=== PATIENT | male | born 1980 | race African-American/Black ===

== ENCOUNTER 2019-10-13 11:41 | Outpatient (CLI) | payer SELFPAY ==
[2019-10-13 12:07] VITALS: BP 154/105
[2019-10-13] MEDS ORDERED: NORMAL SALINE 1000 ML 1,000 ML IV PRN (12:16)
== END 2019-10-13 13:27 | disposition home or self-care (01) ==
LOC: II 11:41 → 5TH 12:07 → II 13:27
PROVIDERS: ATTEND Internal Medicine
DX: C25.2 Malignant neoplasm of tail of pancreas (principal)
CPT/HCPCS: 96360; J1642; 96361

== ENCOUNTER 2019-11-01 07:55 | Outpatient (CLI) | payer BC ==
[~2019-11-01 07:55] MED LIST: ATROPINE SULFATE INJ 0.4 MG/1 ML VIAL IV PRN; CONTAINER EMPTY IV PRN; DEXAMETHASONE 10 MG in NS 50 ML IV PRN; DEXTROSE 5% IV PRN; DEXTROSE 5%-WATER 250 ML IV PRN; FAMOTIDINE 20 MG in NS 50 ML IV PRN; FLUOROURACIL IV PRN; LEUCOVORIN CALCIUM IV PRN; OXALIPLATIN IV PRN; PALONOSETRON 0.25 MG/5 ML VIAL IV PRN; WATER IV PRN
[2019-11-01 08:19] VITALS: BP 152/102
[2019-11-01] MEDS: WATER IV PRN ×2 (12:25→12:35)
[2019-11-01] MEDS: DEXTROSE 5% IV PRN ×2 (12:25→12:35)
[2019-11-01] MEDS: IRINOTECAN HCL IV PRN ×2 (12:25→12:35)
== END 2019-11-01 14:30 | disposition home or self-care (01) ==
LOC: II 07:55 → 5TH 07:57 → II 14:30
PROVIDERS: ATTEND Internal Medicine
DX: Z51.11 Encounter for antineoplastic chemotherapy (principal); C25.2 Malignant neoplasm of tail of pancreas
CPT/HCPCS: 96413; 96415; 96416; 96367; 96375; 96417; J0461; J3490; J9190; J9206; J7060; S0028; J1100; J9263; J2469; 96368

== ENCOUNTER 2019-11-03 12:03 | Outpatient (CLI) | payer BC ==
[2019-11-03] MEDS ORDERED: NORMAL SALINE 1000 ML 1,000 ML IV PRN (12:13)
[2019-11-03 12:20] VITALS: BP 146/95
[2019-11-03] MEDS ORDERED: PROMETHAZINE HCL INJ 25 MG/1 ML VIAL ONE (12:55)
== END 2019-11-03 13:30 | disposition home or self-care (01) ==
LOC: II 12:03 → 5TH 12:19 → II 13:30
PROVIDERS: ATTEND Internal Medicine
DX: C25.2 Malignant neoplasm of tail of pancreas (principal); R11.0 Nausea
CPT/HCPCS: 96374; 96361; J2550; J1642

== ENCOUNTER 2019-11-15 07:49 | Outpatient (CLI) | payer BC ==
[2019-11-15] MEDS ORDERED: DEXTROSE 5% IV PRN ×3 (08:00)
[2019-11-15] MEDS ORDERED: FAMOTIDINE 20 MG in NS 50 ML IV PRN (08:00)
[2019-11-15] MEDS ORDERED: WATER IV PRN ×3 (08:00)
[2019-11-15] MEDS ORDERED: LEUCOVORIN CALCIUM IV PRN (08:00)
[2019-11-15] MEDS ORDERED: ATROPINE SULFATE INJ 0.4 MG/1 ML VIAL IV PRN (08:00)
[2019-11-15] MEDS ORDERED: IRINOTECAN HCL IV PRN (08:00)
[2019-11-15] MEDS ORDERED: DEXAMETHASONE 10 MG in NS 50 ML IV PRN (08:00)
[2019-11-15] MEDS ORDERED: CONTAINER EMPTY IV PRN (08:00)
[2019-11-15] MEDS ORDERED: FLUOROURACIL IV PRN (08:00)
[2019-11-15] MEDS ORDERED: PALONOSETRON 0.25 MG/5 ML VIAL IV PRN (08:00)
[2019-11-15] MEDS ORDERED: DEXTROSE 5%-WATER 250 ML IV PRN (08:00)
[2019-11-15] MEDS ORDERED: OXALIPLATIN IV PRN (08:00)
[2019-11-15 08:09] VITALS: BP 160/107
[2019-11-15] MEDS ORDERED: PROMETHAZINE HCL INJ 25 MG/1 ML VIAL ONE ×2 (13:18→13:53)
== END 2019-11-15 14:38 | disposition home or self-care (01) ==
LOC: II 07:49 → 5TH 07:51 → II 14:38
PROVIDERS: ATTEND Internal Medicine
DX: Z51.11 Encounter for antineoplastic chemotherapy (principal); C25.2 Malignant neoplasm of tail of pancreas
CPT/HCPCS: 96413; 96415; 96416; 96365; 96367; 96368; 96375; 96417; J0461; J3490; J9190; J9206; J2550; J7060; S0028; J1100; J9263; J2469

== ENCOUNTER 2019-11-17 13:46 | Outpatient (CLI) | payer BC ==
[2019-11-17] MEDS ORDERED: NORMAL SALINE 1000 ML 1,000 ML IV PRN (14:01)
[2019-11-17 14:07] VITALS: BP 144/95
== END 2019-11-17 15:35 | disposition home or self-care (01) ==
LOC: II 13:46 → 5TH 13:47 → II 15:35
PROVIDERS: ATTEND Internal Medicine
DX: C25.2 Malignant neoplasm of tail of pancreas (principal)
CPT/HCPCS: 96360

== ENCOUNTER → 2019-11-23 | Outpatient (CLI) | payer BC ==
--- NOTE | 2019-11-23 10:38 | RADIOLOGY REPORT (SQ) ---
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 TECHNIQUE: CT scan of the chest performed using helical scanning technique with dynamic intravenous contrast injection. Images reviewed with lung, soft tissue and bone windows. Reconstructed coronal a nd sagittal MPR images reviewed. All images stored on PACS. All CT scanners at this facility use dose modulation, iterative reconstruction, and/or weight based d osing when appropriate to reduce radiation dose to as low as reasonably achievable (ALARA). [facility]: Dose Right [facility]: CareDose [facility]: Dose Right [facility]: Teradose 4D [facility]: Smart [employer] RADIATION DOSE: CT Rad equipment meets quality standard of care and radiation dose reduction techniq ues were employed. CTDIvol: 6.9 - 7.3 mGy. DLP: 1075 mGy-cm. . LIMITATIONS: None. FINDINGS: AXILLAE: No adenopathy. CHEST WALL: No masses. No subcutaneous air. LUNGS: Complete collapse of the left upper and lower lobes. PLEURA: Large left pleural effusion occupying the majority of the left hemithorax. Small right effus ion. THYROID: No masses or significant asymmetry. HILAR AND MEDIASTINAL STRUCTURES: Mediastinum shifted to the right. No pathologic adenopathy is appr eciated. AORTA AND GREAT VESSELS: No aneurysm. No dissection. PULMONARY ARTERIES: No identified pulmonary emboli. Study not optimized for the pulmonary arteries. HEART: No pericardial effusion. HARDWARE AND LIFELINES: Mmrbqo-D-Qyvd overlies the left chest wall. Catheter tip overlies the SVC. BONES: No significant finding. OTHER: No other significant finding. IMPRESSION: Large left-sided pleural effusion which occupies the majority of the left hemithorax. C omplete collapse of left upper and lower lobes. COMPARISON: None. RADIATION DOSE: CT Rad equipment meets quality standard of care and radiation dose reduction techniq ues were employed. CTDIvol: 6.9 - 7.3 mGy. DLP: 1075 mGy-cm. mGy. TECHNIQUE: CT scan of the abdomen and pelvis performed with intravenous and oral contrast using jeremie liberty scanning technique with dynamic intravenous contrast injection. Images reviewed with lung, soft tissue and bone windows. Reconstructed coronal and sagittal MPR images reviewed. Delayed images for evaluation of the urinary system also acquired and evaluated. All images stored on PACS. All CT scanners at this facility use dose modulation, iterative reconstruction, and/or weight based d osing when appropriate to reduce radiation dose to as low as reasonably achievable (ALARA). [facility]: Dose Right [facility]: SureCare [facility]: Dose Right [facility]: Teradose 4D [facility]: [employer] FINDINGS: LIVER: There is heterogeneous attenuation within the liver with focal lesions throughout t he right lobe. The largest lesion measures approximately 2.2 cm in diameter. SPLEEN: No focal splenic lesions. The large left effusion axillae displaces the spleen medially and anteriorly. PANCREAS: There is a 7.4 x 8.4 x 7.9 cm mass involving the body and tail the pancreas. This extends to the splenic hilum there is invasion of the left kidney. The mass abuts the left adrenal gland. GALLBLADDER: No identified stones by CT criteria. No inflammatory changes to suggest cholecystitis. ADRENAL GLANDS: No significant masses or asymmetry. RIGHT KIDNEY AND URETER: No solid masses. No significant calcifications. No hydronephrosis or hyd roureter. LEFT KIDNEY AND URETER: As described above pancreatic mass invades the left kidney. No significant calcifications. No hydronephrosis or hydroureter. AORTA AND VESSELS: No aneurysm. No dissection. Renal arteries, SMA, celiac without stenosis. RETROPERITONEUM: Some fullness in the retroperitoneum suspect early metastatic disease. LARGE AND SMALL BOWEL: No dilatation. No masses. No wall thickening. APPENDIX: Normal. ABDOMINAL WALL: No hernia or masses. PERITONEAL CAVITY: There is a small amount of free fluid in the right and left lateral gutters. Ther e is a small amount of free fluid in the pelvis. PELVIS: As above. BONES: No significant or acute findings. OTHER: No other significant finding. IMPRESSION: Large pancreatic mass with direct involvement of the left kidney. Small amount of free fluid. Probable early retroperitoneal adenopathy consistent with metastatic disease. TECHNICAL DOCUMENTATION: JOB ID: [id number] Quality ID # 436: Final reports with documentation of one or more dose reduction techniques (e.g., Au tomated exposure control, adjustment of the mA and/or kV according to patient size, use of iterative reconstruction technique) 2010 [employer]- All Rights Reserved Reading location - IP/workstation name: [email or web address]
--- NOTE | 2019-11-23 10:38 | RADIOLOGY REPORT (SQ) ---
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 TECHNIQUE: CT scan of the chest performed using helical scanning technique with dynamic intravenous contrast injection. Images reviewed with lung, soft tissue and bone windows. Reconstructed coronal a nd sagittal MPR images reviewed. All images stored on PACS. All CT scanners at this facility use dose modulation, iterative reconstruction, and/or weight based d osing when appropriate to reduce radiation dose to as low as reasonably achievable (ALARA). [facility]: Dose Right [facility]: CareDose [facility]: Dose Right [facility]: Teradose 4D [facility]: Smart [employer] RADIATION DOSE: CT Rad equipment meets quality standard of care and radiation dose reduction techniq ues were employed. CTDIvol: 6.9 - 7.3 mGy. DLP: 1075 mGy-cm. . LIMITATIONS: None. FINDINGS: AXILLAE: No adenopathy. CHEST WALL: No masses. No subcutaneous air. LUNGS: Complete collapse of the left upper and lower lobes. PLEURA: Large left pleural effusion occupying the majority of the left hemithorax. Small right effus ion. THYROID: No masses or significant asymmetry. HILAR AND MEDIASTINAL STRUCTURES: Mediastinum shifted to the right. No pathologic adenopathy is appr eciated. AORTA AND GREAT VESSELS: No aneurysm. No dissection. PULMONARY ARTERIES: No identified pulmonary emboli. Study not optimized for the pulmonary arteries. HEART: No pericardial effusion. HARDWARE AND LIFELINES: Gdydyf-M-Serr overlies the left chest wall. Catheter tip overlies the SVC. BONES: No significant finding. OTHER: No other significant finding. IMPRESSION: Large left-sided pleural effusion which occupies the majority of the left hemithorax. C omplete collapse of left upper and lower lobes. COMPARISON: None. RADIATION DOSE: CT Rad equipment meets quality standard of care and radiation dose reduction techniq ues were employed. CTDIvol: 6.9 - 7.3 mGy. DLP: 1075 mGy-cm. mGy. TECHNIQUE: CT scan of the abdomen and pelvis performed with intravenous and oral contrast using jeremie liberty scanning technique with dynamic intravenous contrast injection. Images reviewed with lung, soft tissue and bone windows. Reconstructed coronal and sagittal MPR images reviewed. Delayed images for evaluation of the urinary system also acquired and evaluated. All images stored on PACS. All CT scanners at this facility use dose modulation, iterative reconstruction, and/or weight based d osing when appropriate to reduce radiation dose to as low as reasonably achievable (ALARA). [facility]: Dose Right [facility]: SureCare [facility]: Dose Right [facility]: Teradose 4D [facility]: [employer] FINDINGS: LIVER: There is heterogeneous attenuation within the liver with focal lesions throughout t he right lobe. The largest lesion measures approximately 2.2 cm in diameter. SPLEEN: No focal splenic lesions. The large left effusion axillae displaces the spleen medially and anteriorly. PANCREAS: There is a 7.4 x 8.4 x 7.9 cm mass involving the body and tail the pancreas. This extends to the splenic hilum there is invasion of the left kidney. The mass abuts the left adrenal gland. GALLBLADDER: No identified stones by CT criteria. No inflammatory changes to suggest cholecystitis. ADRENAL GLANDS: No significant masses or asymmetry. RIGHT KIDNEY AND URETER: No solid masses. No significant calcifications. No hydronephrosis or hyd roureter. LEFT KIDNEY AND URETER: As described above pancreatic mass invades the left kidney. No significant calcifications. No hydronephrosis or hydroureter. AORTA AND VESSELS: No aneurysm. No dissection. Renal arteries, SMA, celiac without stenosis. RETROPERITONEUM: Some fullness in the retroperitoneum suspect early metastatic disease. LARGE AND SMALL BOWEL: No dilatation. No masses. No wall thickening. APPENDIX: Normal. ABDOMINAL WALL: No hernia or masses. PERITONEAL CAVITY: There is a small amount of free fluid in the right and left lateral gutters. Ther e is a small amount of free fluid in the pelvis. PELVIS: As above. BONES: No significant or acute findings. OTHER: No other significant finding. IMPRESSION: Large pancreatic mass with direct involvement of the left kidney. Small amount of free fluid. Probable early retroperitoneal adenopathy consistent with metastatic disease. TECHNICAL DOCUMENTATION: JOB ID: [id number] Quality ID # 436: Final reports with documentation of one or more dose reduction techniques (e.g., Au tomated exposure control, adjustment of the mA and/or kV according to patient size, use of iterative reconstruction technique) 2010 [employer]- All Rights Reserved Reading location - IP/workstation name: [email or web address]
== END ==
LOC: RAD 08:51
PROVIDERS: ATTEND Internal Medicine
DX: C25.2 Malignant neoplasm of tail of pancreas (principal); J90 Pleural effusion, not elsewhere classified; J98.19 Other pulmonary collapse
CPT/HCPCS: 71260; 74177

== ENCOUNTER 2019-11-25 12:06 | Inpatient (IN) | payer BC ==
--- NOTE | 2019-11-25 12:20 | ER Document Report ---
ED Medical Screen (RME) - General Chief Complaint: Shortness Of Breath Stated Complaint: SHORTNESS OF BREATH Time Seen by Provider: 11/25/19 12:15 Primary Care Provider: PABLO WELCH MD [Primary Care Provider] - Follow up as needed Information source: Patient Notes: Patient presents complaining of shortness of breath. Patient was sent here from his oncologist office. Patient states that Dr. Vince pratt told him that he had fluid on his left lung. Patient denies any chest pain or fever. Patient is currently being treated for pancreatic cancer and also has a history of hypertension and diabetes. I have greeted and performed a rapid initial assessment of this patient. A comprehensive ED assessment and evaluation of the patient, analysis of test results and completion of the medical decision making process will be conducted by additional ED providers. TRAVEL OUTSIDE OF THE [place] IN LAST 30 DAYS: No - Related Data Allergies/Adverse Reactions: azithromycin Allergy (Unknown, Verified 11/25/19 12:15) Physical Exam - Respiratory Respiratory status: No respiratory distress Breath sounds: Other - Diminished breath sounds on the left Doctor's Discharge - Discharge Referrals: PABLO WELCH MD [Primary Care Provider] - Follow up as needed
--- NOTE | 2019-11-25 12:59 | RADIOLOGY REPORT (SQ) ---
EXAM DESCRIPTION: CHEST 2 VIEWS COMPLETED DATE/TIME: 11/25/2019 12:48 pm REASON FOR STUDY: sob COMPARISON: None. EXAM PARAMETERS: NUMBER OF VIEWS: two views TECHNIQUE: PA and lateral views of the chest were obtained. RADIATION DOSE: NA LIMITATIONS: none FINDINGS: LUNGS AND PLEURA: Large left pleural effusion associated with left to right mediastinal sh ift. There is no pneumothorax. MEDIASTINUM AND HILAR STRUCTURES: As above. HEART AND VASCULAR STRUCTURES: The cardiac silhouette and pulmonary vasculature are within normal dawn its. BONES: No acute findings. HARDWARE: The tip of the left subclavian vein approach single-lumen port projects within the SVC. OTHER: No other finding. IMPRESSION: Large left pleural effusion. TECHNICAL DOCUMENTATION: JOB ID: [id number] [employer]- All Rights Reserved Reading location - IP/workstation name: [email or web address]
[2019-11-25 14:06] LABS: ABSOLUTE MONOCYTES (AUTO) 0.6 10^3/uL (0.1-1.4); ABSOLUTE NEUT (AUTO) 3.9 10^3/uL (1.7-8.2); BASOPHILS % (AUTO) 0.4 % (0-2); EOSINOPHILS % (AUTO) 0.4 % (0-6); HEMATOCRIT 36.6 % (37.9-51.0); HEMOGLOBIN 12.1 g/dL (13.5-17.0); LYMPHOCYTES % (AUTO) 18.3 % (13-45); MEAN CORPUSCULAR HEMOGLOBIN 25.9 pg (27.0-33.4); MEAN CORPUSCULAR HGB CONC 33.1 g/dL (32.0-36.0); MEAN CORPUSCULAR VOLUME 78 fl (80-97); MONOCYTES % (AUTO) 11.2 % (3-13); PLATELET COUNT 125 10^3/uL (150-450); RED BLOOD COUNT 4.67 10^6/uL (4.35-5.55); RED CELL DISTRIBUTION WIDTH 18.5 % (11.5-14.0); SEGMENTED NEUTROPHILS % (AUTO) 69.7 % (42-78); TOTAL CELLS COUNTED % (AUTO) 100 %; WHITE BLOOD COUNT 5.7 10^3/uL (4.0-10.5)
[2019-11-25 14:26] LABS: ALBUMIN 3.3 g/dL (3.5-5.0); ALKALINE PHOSPHATASE 119 U/L (38-126); ANION GAP 8 (5-19); ASPARTATE AMINO TRANSFERASE 27 U/L (17-59); BILIRUBIN,TOTAL 0.5 mg/dL (0.2-1.3); BLOOD UREA NITROGEN 6 mg/dL (7-20); CALCIUM 8.8 mg/dL (8.4-10.2); CARBON DIOXIDE 35 mmol/L (22-30); CHLORIDE 97 mmol/L (98-107); GLUCOSE 218 mg/dL (75-110); POTASSIUM 3.1 mmol/L (3.6-5.0)
[2019-11-25 14:37] LABS: NT PRO BNP 105 pg/mL (<125)
[2019-11-25 14:43] LABS: TROPONIN I < 0.012 ng/mL
--- NOTE | 2019-11-25 15:19 | ER Document Report ---
Entered by GURWINDER ARRIAZA SCRIBE 11/25/19 1455 Acting as scribe for:TRISTEN TRAN MD ED General - General Chief Complaint: Shortness Of Breath Stated Complaint: SHORTNESS OF BREATH Time Seen by Provider: 11/25/19 12:15 Information source: Patient Notes: 39 year old male with stage IV pancreatic cancer presents to the ED with shortness of breath. Patient reports that he does not recall initial start of SOB. Patient has a history of hypertension and Type 1 diabetes. Patient present ly uses a sliding scale insulin, states he has not taken insulin in 2 to 3 weeks because his blood sugars have not been elevated. Patient had an outpatient chest x-ray today showing a large left pleural effusion with mediastinal shift. He is being treated with chemotherapy by Dr. Florez. TRAVEL OUTSIDE OF THE [place] IN LAST 30 DAYS: No - Related Data Allergies/Adverse Reactions: azithromycin Allergy (Unknown, Verified 11/25/19 12:15) Past Medical History - General Information source: Patient - Social History Smoking Status: Never Smoker Cigarette use (# per day): No Chew tobacco use (# tins/day): No Frequency of alcohol use: None Drug Abuse: None Family History: Reviewed & Not Pertinent Patient has suicidal ideation: No Patient has homicidal ideation: No Malignancy Medical History: Reports Hx Pancreatic Cancer - Stage IV Surgical Hx: Negative Review of Systems - Review of Systems Constitutional: No symptoms reported EENT: No symptoms reported Cardiovascular: No symptoms reported Respiratory: See HPI, Short of breath Gastrointestinal: No symptoms reported Genitourinary: No symptoms reported Male Genitourinary: No symptoms reported Musculoskeletal: No symptoms reported Skin: No symptoms reported Hematologic/Lymphatic: No symptoms reported Neurological/Psychological: No symptoms reported -: Yes All other systems reviewed and negative Physical Exam - Vital signs Vitals: Temp Pulse Resp BP Pulse Ox 98.0 F 117 H 18 140/103 H 100 11/25/19 12:12 11/25/19 12:12 11/25/19 12:12 11/25/19 12:12 11/25/19 12:12 - Notes Notes: General: Alert, appears cachectic. HEENT: Normocephalic. Atraumatic. PERRL. Extraocular movements intact. Oropharynx clear. Neck: Supple. Non-tender. Respiratory: Left lung is dull on percussion. Right lung clear. Cardiovascular: Regular rate and rhythm. Abdominal: Normal Inspection. Non-tender. No distension. Normal Bowel Sounds. Back: No gross abnormalities. Extremities: Moves all four extremities. Upper extremities: Normal inspection. Normal ROM. Lower extremities: Normal inspection. No edema. Normal ROM. Neurological: Normal cognition. AAOx4. Normal speech. Psychological: Normal affect. Normal Mood. Skin: Warm. Dry. Normal color. Course - Re-evaluation Re-evalutation: 11/25/19 16:40 Dr. Fallon placed chest tube and got out 4 L of fluid. - Vital Signs Vital signs: Temp Pulse Resp BP Pulse Ox 98.1 F 121 H 16 116/81 92 11/25/19 20:16 11/25/19 20:16 11/25/19 20:16 11/25/19 20:16 11/25/19 20:16 - Laboratory Result Diagrams: 11/25/19 13:40 11/25/19 13:40 Laboratory results interpreted by me: 11/25/19 11/25/19 13:40 13:40 Hgb 12.1 L Hct 36.6 L MCV 78 L MCH 25.9 L RDW 18.5 H Plt Count 125 L Potassium 3.1 L Chloride 97 L Carbon Dioxide 35 H BUN 6 L Glucose 218 H Albumin 3.3 L - Diagnostic Test Radiology reviewed: Image reviewed, Reports reviewed - Large left pleural effusion with mediastinal shift - EKG Interpretation by Ut EKG shows normal: Sinus rhythm, [place], Intervals, QRS Complexes. abnormal: ST-T Waves - Nonspecific diffuse T abnormalities Rate: Tachycardia - 108 When compared to previous EKG there are: Previous EKG unavailable - Consults Dr. Fallon Time consulted: 14:55 Consulted provider: will come to ER ELLEN Rouse Time consulted: 16:35 Consulted provider: will come to ER Discharge - Discharge Clinical Impression: History of colon cancer, stage IV, Pancreatic cancer metastasized to liver, Pleural effusion Condition: Stable Disposition: ADMITTED INPATIENT Admitting Provider: Maddie (Hospitalist) Unit Admitted: Medical Floor Scribe Attestation: 11/25/19 16:03 I personally performed the services described in the documentation, reviewed and edited the documentation which was dictated to the scribe in my presence, and it accurately records my words and actions. I personally performed the services described in the documentation, reviewed and edited the documentation which was dictated to the scribe in my presence, and it accurately records my words and actions.
[2019-11-25] MEDS ORDERED: MIDAZOLAM 2 MG/2 ML INJ IV ONE ×2 (15:50→16:06)
[2019-11-25] MEDS ORDERED: FENTANYL CITRATE INJ/PF 100 MCG/2 ML AMPUL IV ONE (15:51)
[2019-11-25] MEDS ORDERED: LIDOCAINE 1% INJ-PF (10 MG/ML) 30 ML SDV INJ ONE (16:00)
[2019-11-25] MEDS ORDERED: LIDOCAINE 1% INJ-PF (10 MG/ML) 30 ML SDV ONE (16:02)
--- NOTE | 2019-11-25 16:44 | Operative Report ---
Operative Report DATE OF SURGERY: 11/25/19 PREOPERATIVE DIAGNOSIS: 1. Massive left pleural effusion with mediastinal shif t. 2. Metastatic pancreatic carcinoma POSTOPERATIVE DIAGNOSIS: Same OPERATION: 1. Placement of 32 Monegasque left thoracostomy tube and drainage of a l eft pleural effusion. 2. Interpretation of portable upright chest x-ray SURGEON: GERRY LAL ANESTHESIA: Local TISSUE REMOVED OR ALTERED: 4500 cc of fluid left chest COMPLICATIONS: None ESTIMATED BLOOD LOSS: Scant INTRAOPERATIVE FINDINGS: See below PROCEDURE: The patient was moved from examination room in the emergency department to the trauma bay where is placed in semirecumbent position. Left chest exposed, left arm abducted. The left chest wall was prepped and draped in sterile fashion. Surgical plan surgical timeout conducted. Preoperative chest x-ray revealed massive left pleural effusion with mediastinal shift to the right. The skin over ICS 8- 9 was anesthetized with 1% plain lidocaine. Deeper tissue was also anesthetized with a 25-gauge needle. A small transverse incision was made with a #15 blade, Mary clamp used to spread the subcutaneous tissue. A puncture was then made into the left pleural space and the intercostal muscle spread. A Mary clamp was used for this purpose. I then inserted a 32 Monegasque chest tube into a posterior lateral position with the sentinel hole approximately 8 to 10 cm from the skin edge. The chest tube was secured to the skin in a pursestring fashion with 0 silk suture. The patient drained approximately 4500 cc of pleural fluid, most likely malignant effusion. The drainage was performed in segments so that patient could catch his breath and overcome the coughing sensation. Chest tube was secured to the skin with tape and 4 x 4's. Portable upright chest x-ray showed chest tube to be in good position in the lateral pleural space with near complete evacuation of the left pleural fluid, and return to the mediastinum from the right to the more left of center position. Orders written. Patient tolerated the procedure well, remained hemodynamically stable and without complications. Plan: We will leave chest tube to waterseal, change dressing daily. We will discuss management of the left pleural space pending results of cytologic kvng sis.
--- NOTE | 2019-11-25 17:06 | RADIOLOGY REPORT (SQ) ---
EXAM DESCRIPTION: CHEST SINGLE VIEW COMPLETED DATE/TIME: 11/25/2019 4:38 pm REASON FOR STUDY: CHEST TUBE COMPARISON: AP chest 11/25/2019, [address] chest 11/23/2019 EXAM PARAMETERS: NUMBER OF VIEWS: One view. TECHNIQUE: Single frontal radiographic view of the chest acquired. RADIATION DOSE: NA LIMITATIONS: None. FINDINGS: LUNGS AND PLEURA: Large bore left chest tube in place. No left pneumothorax or residual p leural effusion. No left chest wall air. MEDIASTINUM AND HILAR STRUCTURES: No masses. Contour normal. HEART AND VASCULAR STRUCTURES: Heart normal in size. Normal vasculature. BONES: No acute findings. HARDWARE: Left-sided permanent central line tip superior vena cava. Left large bore chest tube in pl jonathan in OTHER: No other significant finding. IMPRESSION: Post left large bore chest tube placement. No pneumothorax. No residual pleural effusi on or significant airspace disease. TECHNICAL DOCUMENTATION: JOB ID: [id number] [employer]- All Rights Reserved Reading location - IP/workstation name: [email or web address]
--- NOTE | 2019-11-25 17:48 | EKG REPORT ---
SEVERITY:- ABNORMAL ECG - SINUS TACHYCARDIA NONSPECIFIC T ABNORMALITIES, DIFFUSE LEADS : Confirmed by: Marcellus López MD 25-Nov-2019 17:47:46
[2019-11-25] MEDS ORDERED: DEXTROSE 50%-WATER 25 GM/50 ML DISP.SYRIN IV PRN ×2 (17:53)
[2019-11-25] MEDS ORDERED: GLUCAGON,HUMAN RECOMB 1 MG INJ IM PRN (17:53)
[2019-11-25] MEDS ORDERED: DEXTROSE 40% GEL 15 GM TUBE PO PRN ×2 (17:53)
[2019-11-25] MEDS ORDERED: HYDRALAZINE HCL INJ/PF 20 MG/1 ML SDV IV PRN (17:53)
[2019-11-25] MEDS ORDERED: ONDANSETRON 4 MG TAB.RAPDIS PO PRN (18:02)
[2019-11-25] MEDS ORDERED: ONDANSETRON HCL INJ/PF 4 MG/2 ML SDV IV PRN (18:02)
--- NOTE | 2019-11-25 18:14 | RADIOLOGY REPORT (SQ) ---
EXAM DESCRIPTION: CHEST SINGLE VIEW COMPLETED DATE/TIME: 11/25/2019 6:01 pm REASON FOR STUDY: decreased oxygen sat COMPARISON: None. EXAM PARAMETERS: NUMBER OF VIEWS: One view. TECHNIQUE: Single frontal radiographic view of the chest acquired. RADIATION DOSE: NA LIMITATIONS: None. FINDINGS: LUNGS AND PLEURA: There is marked opacification in the left lung compared to the earlier s tudy. MEDIASTINUM AND HILAR STRUCTURES: No masses. Contour normal. HEART AND VASCULAR STRUCTURES: Heart normal in size. Normal vasculature. BONES: No acute findings. HARDWARE: Left thoracotomy tube. Injection port on the left. OTHER: No other significant finding. IMPRESSION: There is marked opacification in the left lung. The appearance is suggestive of edema v ersus atelectasis. The right lung remains clear, however. TECHNICAL DOCUMENTATION: JOB ID: [id number] [employer]- All Rights Reserved Reading location - IP/workstation name: [email or web address]
[2019-11-25 19:22] LABS: INTERNATIONAL RATION (INR) 1.13; PROTHROMBIN TIME 14.6 SEC (11.4-15.4)
--- NOTE | 2019-11-25 20:24 | PDOC CONSULTATION ---
Consultation Consult Date: 11/25/19 Provider Consulted: SHAHNAZ INGRAM Consult reason:: Hematology/Oncology consultation was requested for patient with metastatic pancreatic cancer on active treatment with new pleural effusion. History of Present Illness Admission Date/PCP: 11/25/19 16:51 PABLO FLOREZ MD History of Present Illness: LEEANN DONALD is a 39 year old male who was diagnosed with stage IV, metastatic pancreatic cancer in Aug 2019. He was started on FOLFIRINOX 08/24/2019. Most r ecent dose was Nov 15. However, repeat CT scans showed progression with large left pleural effusion. He underwent thoracentesis earlier today by Dr. Fallon and now has chest tube placed. >4000 L fluid was drained. Currently, he states that he is feeling a bit better. Family is at bedside. He denies any significant dyspnea or pain prior to thoracentesis today. Past Medical History Endocrine Medical History: Reports: Diabetes Mellitus Type 2 Malignancy Medical History: Reports: Pancreatic Cancer - Stage IV Past Surgical History Past Surgical History: Reports: Other - umbilical area I/D. Biopsy pancreatic mass Social History Smoking Status: Never Smoker Electronic Cigarette use?: No Family History Family History: Other - 3 Aunts with breast cancer Parental Family History Reviewed: Yes Children Family History Reviewed: No Sibling(s) Family History Reviewed.: Yes Medication/Allergy Allergies/Adverse Reactions: azithromycin Allergy (Unknown, Verified 11/25/19 12:15) Review of Systems Constitutional: ABSENT: fever(s), headache(s) Eyes: ABSENT: visual disturbances Ears: ABSENT: hearing changes Nose, Mouth, and Throat: ABSENT: sore throat Cardiovascular: PRESENT: dyspnea on exertion Gastrointestinal: ABSENT: nausea Genitourinary: ABSENT: dysuria Integumentary: ABSENT: rash Hematologic/Lymphatic: ABSENT: easy bleeding Physical Exam Vital Signs: Temp Pulse Resp BP Pulse Ox 98.0 F 117 H 26 H 116/78 90 L 11/25/19 12:12 11/25/19 12:12 11/25/19 19:15 11/25/19 19:15 11/25/19 19:15 Intake & Output 11/24/19 11/25/19 11/26/19 06:59 06:59 06:59 Weight 80 kg General appearance: PRESENT: no acute distress, well-developed, well-nourished Head exam: PRESENT: normocephalic Eye exam: PRESENT: EOMI Mouth exam: PRESENT: moist, tongue midline Respiratory exam: PRESENT: decreased breath sounds - entire left lung Cardiovascular exam: PRESENT: RRR GI/Abdominal exam: PRESENT: soft. ABSENT: tenderness Extremities exam: ABSENT: pedal edema Neurological exam: PRESENT: alert, awake Psychiatric exam: PRESENT: appropriate affect Skin exam: PRESENT: normal color Results Laboratory Results: 11/25/19 13:40 11/25/19 13:40 11/25/19 11/25/19 13:40 13:40 WBC 5.7 RBC 4.67 Hgb 12.1 L Hct 36.6 L MCV 78 L MCH 25.9 L MCHC 33.1 RDW 18.5 H Plt Count 125 L Seg Neutrophils % 69.7 Sodium 139.5 Potassium 3.1 L Chloride 97 L Carbon Dioxide 35 H Anion Gap 8 BUN 6 L Creatinine 0.55 Est GFR ( Amer) > 60 Glucose 218 H Calcium 8.8 Total Bilirubin 0.5 AST 27 Alkaline Phosphatase 119 Total Protein 7.0 Albumin 3.3 L 11/25/19 13:40 Troponin I < 0.012 NT-Pro-B Natriuret Pep 105 Impressions: Chest X-Ray 11/25/19 12:18 IMPRESSION: Large left pleural effusion. Status: Image reviewed by me Assessment & Plan - Diagnosis (1) Pancreatic cancer metastasized to liver Is this a current diagnosis for this admission?: Yes Plan: May consider Gemzar/Abraxane after hospital discharge. Dr. Florez to discuss with patient in the future. All chemo currently on hold. (2) Pleural effusion Is this a current diagnosis for this admission?: Yes Plan: Await cytology. Chest tube per Surgery. - Plan Summary Plan Summary: Supportive care. All questions answered. Family together with patient. He was discussed with Dr. Fallon and Kurt Joel, Hospitalist
[2019-11-25] MEDS: POTASSI CL 20 MEQ/50 ML RIDER 20 MEQ/50 ML RTUPB IV SCH ×2 (20:39→22:19)
[2019-11-25] MEDS: NORMAL SALINE 1000 ML 1,000 ML IV PRN (20:42)
[2019-11-25] MEDS: FAMOTIDINE 20 MG TABLET PO SCH (21:35)
[2019-11-25] MEDS: OXYCODONE-ACETAMINOPHEN 5-325 MG TABLET PO PRN (21:35)
[2019-11-25] MEDS: INSULIN LISPRO 100 UNIT/ML 3 ML VIAL SUBCUT SCH (22:24)
[2019-11-26 05:06] LABS: ABSOLUTE LYMPHOCYTES (AUTO) 1.3 10^3/uL (0.5-4.7); ABSOLUTE MONOCYTES (AUTO) 0.8 10^3/uL (0.1-1.4); ABSOLUTE NEUT (AUTO) 4.6 10^3/uL (1.7-8.2); BASOPHILS % (AUTO) 0.3 % (0-2); EOSINOPHILS % (AUTO) 0.4 % (0-6); HEMOGLOBIN 12.6 g/dL (13.5-17.0); LYMPHOCYTES % (AUTO) 19.5 % (13-45); MEAN CORPUSCULAR HGB CONC 33.1 g/dL (32.0-36.0); MEAN CORPUSCULAR VOLUME 78 fl (80-97); MONOCYTES % (AUTO) 11.4 % (3-13); PLATELET COUNT 113 10^3/uL (150-450); RED BLOOD COUNT 4.85 10^6/uL (4.35-5.55); RED CELL DISTRIBUTION WIDTH 18.5 % (11.5-14.0); SEGMENTED NEUTROPHILS % (AUTO) 68.4 % (42-78); TOTAL CELLS COUNTED % (AUTO) 100 %; WHITE BLOOD COUNT 6.7 10^3/uL (4.0-10.5)
[2019-11-26 05:24] LABS: ANION GAP 7 (5-19); BLOOD UREA NITROGEN 7 mg/dL (7-20); CARBON DIOXIDE 34 mmol/L (22-30); CHLORIDE 97 mmol/L (98-107); GLUCOSE 143 mg/dL (75-110); POTASSIUM 3.2 mmol/L (3.6-5.0)
[2019-11-26] MEDS: OXYCODONE-ACETAMINOPHEN 5-325 MG TABLET PO PRN (07:59)
[2019-11-26] MEDS: INSULIN LISPRO 100 UNIT/ML 3 ML VIAL SUBCUT SCH ×4 (08:03→21:22)
[2019-11-26] MEDS: CLONIDINE HCL 0.1 MG TABLET PO SCH (09:53)
[2019-11-26] MEDS: MAGNESIUM SULFATE/D5W 1 GM/100 ML RTUPB IV SCH ×2 (09:53→12:13)
[2019-11-26] MEDS: FENTANYL 25 MCG/HR PATCH.TD72 TD SCH (09:54)
[2019-11-26] MEDS: DOCUSATE SODIUM 100 MG CAPSULE PO SCH (09:54)
[2019-11-26] MEDS: FAMOTIDINE 20 MG TABLET PO SCH ×2 (09:54→21:22)
[2019-11-26] MEDS ORDERED: FENTANYL 25 MCG/HR PATCH.TD72 TD SCH (10:00)
[2019-11-26] MEDS ORDERED: DOCUSATE SODIUM 100 MG/10 ML UDC PO SCH (10:00)
--- NOTE | 2019-11-26 11:16 | PDOC PROGRESS REPORT ---
Subjective Progress Note for:: 11/26/19 Reason For Visit: LEFT PLEURAL EFFUSION, METASTATIC PANCREATIC CANCE 11/26/2019 Large left pleural effusion secondary to stage IV metastatic pancreatic cancer, diabetes, 3 of colon cancer, hypertension Physical Exam Vital Signs: Temp Pulse Resp BP Pulse Ox 98.2 F 104 H 16 148/94 H 98 11/26/19 07:59 11/26/19 07:59 11/26/19 07:59 11/26/19 07:59 11/26/19 07:59 Intake & Output 11/25/19 11/26/19 11/27/19 06:59 06:59 06:59 Intake Total 1000 Output Total 725 Balance 275 Weight 80 kg General appearance: PRESENT: mild distress, other - Patient is very stoic and appears to have a high pain threshold Respiratory exam: PRESENT: clear to auscultation duong, other - No lateralizing breath sounds. ABSENT: rales, rhonchi, wheezes Cardiovascular exam: PRESENT: RRR. ABSENT: diastolic murmur, rubs, systolic murmur Neurological exam: PRESENT: alert, awake, oriented to person, oriented to place, oriented to time, oriented to situation, CN II-XII grossly intact. ABSENT: mo tor sensory deficit Psychiatric exam: PRESENT: flat affect, other - Probably patient's normal demeanor Results Laboratory Results: 11/26/19 04:35 11/26/19 04:35 11/25/19 11/25/19 11/26/19 13:40 13:40 04:35 WBC 5.7 6.7 RBC 4.67 4.85 Hgb 12.1 L 12.6 L Hct 36.6 L 38.0 MCV 78 L 78 L MCH 25.9 L 26.0 L MCHC 33.1 33.1 RDW 18.5 H 18.5 H Plt Count 125 L 113 L Seg Neutrophils % 69.7 68.4 Sodium 139.5 Potassium 3.1 L Chloride 97 L Carbon Dioxide 35 H Anion Gap 8 BUN 6 L Creatinine 0.55 Est GFR ( Amer) > 60 Glucose 218 H Calcium 8.8 Magnesium Total Bilirubin 0.5 AST 27 Alkaline Phosphatase 119 Total Protein 7.0 Albumin 3.3 L 11/26/19 04:35 WBC RBC Hgb Hct MCV MCH MCHC RDW Plt Count Seg Neutrophils % Sodium 138.2 Potassium 3.2 L Chloride 97 L Carbon Dioxide 34 H Anion Gap 7 BUN 7 Creatinine 0.59 Est GFR ( Amer) > 60 Glucose 143 H Calcium 8.0 L Magnesium 1.5 L Total Bilirubin AST Alkaline Phosphatase Total Protein Albumin 11/25/19 13:40 Troponin I < 0.012 NT-Pro-B Natriuret Pep 105 Impressions: Chest X-Ray 11/25/19 12:18 IMPRESSION: Large left pleural effusion. Assessment and Plan - Diagnosis (1) Hypertension Is this a current diagnosis for this admission?: Yes (2) Diabetes Is this a current diagnosis for this admission?: Yes (3) History of colon cancer, stage IV Is this a current diagnosis for this admission?: Yes (4) Pancreatic cancer metastasized to liver Is this a current diagnosis for this admission?: Yes (5) Pleural effusion Is this a current diagnosis for this admission?: Yes - Plan Summary Summary: 11/26/2019 She was admitted through the emergency room secondary to shortness of breath due to a large left pleural effusion. This was probably as a result of his pancreatic cancer. General surgery place the chest tube on the left side with almost immediate drainage of 4000 cc of a combination of probable malignant fluid and there is serosanguinous fluid.. Patient appears to have put out around 400 cc of fluid since stabilizing last night in the ER. Patient has felt better since the procedure and has maintained a O2 saturation between 90 and 99% on room air. Temperature is 97.8, pulse is steady at 105, blood pressure 131/87. Patient's potassium remains low at 3.2 and this will be corrected. Glucose is around 200 and stable. Patient's calcium this morning was 8.0 Magnesium was low at 1.5 and magnesium will be replaced Patient's Duragesic patch and oxycodone codon will be added to his pain regimen Patient appears to be hemodynamically and medically stable and was told that surgery will be orchestrating the majority of his care for this admission. Patient's only real complaint is of being hungry. - Time Time Spent with patient: 25-34 minutes
[2019-11-26] MEDS: OXYCODONE HCL IR 5 MG TABLET PO SCH ×2 (12:16→18:07)
[2019-11-26] MEDS: NORMAL SALINE 1000 ML 1,000 ML IV PRN (13:28)
--- NOTE | 2019-11-26 17:23 | PDOC H&P ---
History of Present Illness Admission Date/PCP: 11/25/19 16:51 PABLO WELCH MD History of Present Illness: LEEANN DONALD is a 39 year old male is admitted last night 11/25/2019, with a l arge left-sided pleural effusion. Patient was symptomatic with shortness of breath. Patient has a history of stage IV pancreatic cancer with metastases. Patient also has hypertension and diabetes. Patient had a chest tube placed in the ER with over 4 L drained. Patient is now to be admitted for chest tube continue drainage. Also pain management. Past Medical History Cardiac Medical History: Reports: Hypertension Endocrine Medical History: Reports: Diabetes Mellitus Type 2 Malignancy Medical History: Reports: Pancreatic Cancer - Stage IV Past Surgical History Past Surgical History: Reports: Other - umbilical area I/D. Biopsy pancreatic mass Social History Smoking Status: Never Smoker Electronic Cigarette use?: Yes Frequency of Alcohol Use: None Hx Recreational Drug Use: Yes Drugs: None Hx Prescription Drug Abuse: No - Advance Directive Resuscitation Status: Full Code Family History Family History: Reviewed & Not Pertinent Parental Family History Reviewed: No Children Family History Reviewed: No Sibling(s) Family History Reviewed.: No Medication/Allergy Home Medications: Clonidine HCl [Catapres 0.1 mg Tablet] 0.1 mg PO DAILY 11/25/19 Fentanyl [Duragesic 25 mcg/hr Transdermal Patch] 1 patch TD Q72H 11/25/19 Ondansetron HCl [Zofran 8 mg Tablet] 8 mg PO Q8HP PRN 11/25/19 Oxycodone HCl [Oxy-Ir 5 mg Tablet] 5 mg PO Q6 11/25/19 Promethazine HCl [Phenergan 25 mg Tablet] 25 mg PO Q6HP PRN 11/25/19 Allergies/Adverse Reactions: azithromycin Allergy (Unknown, Verified 11/25/19 12:15) Review of Systems Constitutional: ABSENT: chills, fever(s), headache(s), weight gain, weight loss Respiratory: PRESENT: dyspnea Gastrointestinal: ABSENT: abdominal pain, constipation, diarrhea, hematemesis, hematochezia, nausea, vomiting Neurological: ABSENT: abnormal gait, abnormal speech, confusion, dizziness, focal weakness, syncope Psychiatric: ABSENT: anxiety, depression, homidical ideation, suicidal ideation Physical Exam Vital Signs: Temp Pulse Resp BP Pulse Ox 98.4 F 104 H 16 142/89 H 100 11/26/19 12:51 11/26/19 14:00 11/26/19 12:51 11/26/19 12:51 11/26/19 12:51 Intake & Output 11/25/19 11/26/19 11/27/19 06:59 06:59 06:59 Intake Total 1000 1300 Output Total 725 300 Balance 275 1000 Weight 80 kg 80 kg General appearance: PRESENT: no acute distress, other - Patient has no complaints Respiratory exam: PRESENT: clear to auscultation duong, other - Patient has a large bore chest tube coming out of the left mid axillary line draining thin bloody fluid Cardiovascular exam: PRESENT: RRR. ABSENT: diastolic murmur, rubs, systolic murmur Neurological exam: PRESENT: alert, awake, oriented to person, oriented to place, oriented to time, oriented to situation, CN II-XII grossly intact. ABSENT: motor sensory deficit Psychiatric exam: PRESENT: appropriate affect, normal mood. ABSENT: homicidal ideation, suicidal ideation Results Laboratory Results: 11/26/19 04:35 11/26/19 04:35 11/26/19 11/26/19 04:35 04:35 WBC 6.7 RBC 4.85 Hgb 12.6 L Hct 38.0 MCV 78 L MCH 26.0 L MCHC 33.1 RDW 18.5 H Plt Count 113 L Seg Neutrophils % 68.4 Sodium 138.2 Potassium 3.2 L Chloride 97 L Carbon Dioxide 34 H Anion Gap 7 BUN 7 Creatinine 0.59 Est GFR ( Amer) > 60 Glucose 143 H Calcium 8.0 L Magnesium 1.5 L 11/25/19 13:40 Troponin I < 0.012 NT-Pro-B Natriuret Pep 105 Impressions: Chest X-Ray 11/25/19 12:18 IMPRESSION: Large left pleural effusion. Assessment and Plan - Diagnosis (1) Hypertension Is this a current diagnosis for this admission?: Yes (2) Diabetes Is this a current diagnosis for this admission?: Yes (3) History of colon cancer, stage IV Is this a current diagnosis for this admission?: Yes (4) Pancreatic cancer metastasized to liver Is this a current diagnosis for this admission?: Yes (5) Pleural effusion Is this a current diagnosis for this admission?: Yes - Plan Summary Summary: 11/26/2019 She was admitted through the emergency room secondary to shortness of breath due to a large left pleural effusion. This was probably as a result of his pancreatic cancer. General surgery place the chest tube on the left side with almost immediate drainage of 4000 cc of a combination of probable malignant fluid and there is serosanguinous fluid.. Patient appears to have put out around 400 cc of fluid since stabilizing last night in the ER. Patient has felt better since the procedure and has maintained a O2 saturation between 90 and 99% on room air. Temperature is 97.8, pulse is steady at 105, blood pressure 131/87. Patient's potassium remains low at 3.2 and this will be corrected. Glucose is around 200 and stable. Patient's calcium this morning was 8.0 Magnesium was low at 1.5 and magnesium will be replaced Patient's Duragesic patch and oxycodone codon will be added to his pain regimen Patient appears to be hemodynamically and medically stable and was told that surgery will be orchestrating the majority of his care for this admission. Patient's only real complaint is of being hungry. - Time Time Spent with patient: 35 or more minutes
--- NOTE | 2019-11-26 20:49 | PDOC PROGRESS REPORT ---
Subjective Progress Note for:: 11/26/19 Subjective:: This is a 39-year-old male status post left tube thoracostomy for large pleural effusion, causing respiratory distress. Patient continues to have high output serosanguineous fluid from his left chest tube. He denies any shortness of breath, fevers, chills, nausea, vomiting, abdominal pain, dizziness, blurry vision, headache. He does report pain at the chest tube site. Reason For Visit: LEFT PLEURAL EFFUSION, METASTATIC PANCREATIC CANCE Physical Exam Vital Signs: Temp Pulse Resp BP Pulse Ox 98.4 F 104 H 16 142/89 H 100 11/26/19 12:51 11/26/19 14:00 11/26/19 12:51 11/26/19 12:51 11/26/19 12:51 Intake & Output 11/25/19 11/26/19 11/27/19 06:59 06:59 06:59 Intake Total 1000 1300 Output Total 725 575 Balance 275 725 Weight 80 kg 80 kg General appearance: PRESENT: no acute distress, cooperative Head exam: PRESENT: atraumatic, normocephalic Eye exam: PRESENT: EOMI, PERRLA. ABSENT: scleral icterus Mouth exam: PRESENT: moist, neck supple Neck exam: ABSENT: meningismus, tenderness, thyromegaly, tracheal deviation Respiratory exam: PRESENT: unlabored, other - Chest tube with serosanguineous output. No air leak.. ABSENT: tachypnea, wheezes Cardiovascular exam: PRESENT: RRR Pulses: PRESENT: normal radial pulses GI/Abdominal exam: PRESENT: soft. ABSENT: distended, guarding, rebound, tendern ess Rectal exam: PRESENT: deferred Extremities exam: ABSENT: clubbing Musculoskeletal exam: ABSENT: deformity Neurological exam: PRESENT: alert, awake, oriented to person, oriented to place, oriented to time, oriented to situation Psychiatric exam: ABSENT: agitated, anxious Focused psych exam: ABSENT: delusional Skin exam: ABSENT: cyanosis, erythema, jaundice Results Laboratory Results: 11/26/19 04:35 11/26/19 04:35 11/26/19 11/26/19 04:35 04:35 WBC 6.7 RBC 4.85 Hgb 12.6 L Hct 38.0 MCV 78 L MCH 26.0 L MCHC 33.1 RDW 18.5 H Plt Count 113 L Seg Neutrophils % 68.4 Sodium 138.2 Potassium 3.2 L Chloride 97 L Carbon Dioxide 34 H Anion Gap 7 BUN 7 Creatinine 0.59 Est GFR ( Amer) > 60 Glucose 143 H Calcium 8.0 L Magnesium 1.5 L 11/25/19 13:40 Troponin I < 0.012 NT-Pro-B Natriuret Pep 105 Impressions: Chest X-Ray 11/25/19 12:18 IMPRESSION: Large left pleural effusion. Assessment & Plan - Diagnosis (1) Pleural effusion Is this a current diagnosis for this admission?: Yes - Time Time Spent with patient: Less than 15 minutes - Plan Summary Plan Summary: Is a 39-year-old male with a large left-sided pleural effusion. The patient is status post chest tube placement yesterday. He continues to have a large amount of serosanguineous output. I will monitor the chest tube output. If his output significantly decreases over the coming days, the chest tube can be removed. If his output remains elevated, further treatment will have to be decided upon, including VATS versus chemical pleurodesis versus Pleurx catheter.
[2019-11-26] MEDS ORDERED: OXYCODONE HCL IR 5 MG TABLET PO ONE (21:30)
[2019-11-27] MEDS: OXYCODONE HCL IR 5 MG TABLET PO SCH ×4 (07:50→21:20)
[2019-11-27] MEDS: NORMAL SALINE 1000 ML 1,000 ML IV PRN ×2 (07:51→22:49)
[2019-11-27] MEDS: INSULIN LISPRO 100 UNIT/ML 3 ML VIAL SUBCUT SCH ×4 (08:37→23:00)
[2019-11-27] MEDS: DOCUSATE SODIUM 100 MG CAPSULE PO SCH (09:26)
[2019-11-27] MEDS: CLONIDINE HCL 0.1 MG TABLET PO SCH (09:26)
[2019-11-27] MEDS: FAMOTIDINE 20 MG TABLET PO SCH ×2 (09:26→21:11)
[2019-11-27 11:00] LABS: ABSOLUTE EOSINOPHILS # (AUTO) 0.1 10^3/uL (0.0-0.6); ABSOLUTE LYMPHOCYTES (AUTO) 0.8 10^3/uL (0.5-4.7); ABSOLUTE MONOCYTES (AUTO) 0.6 10^3/uL (0.1-1.4); ABSOLUTE NEUT (AUTO) 4.4 10^3/uL (1.7-8.2); BASOPHILS % (AUTO) 0.2 % (0-2); EOSINOPHILS % (AUTO) 0.9 % (0-6); HEMATOCRIT 35.2 % (37.9-51.0); HEMOGLOBIN 11.4 g/dL (13.5-17.0); LYMPHOCYTES % (AUTO) 13.1 % (13-45); MEAN CORPUSCULAR HEMOGLOBIN 25.5 pg (27.0-33.4); MEAN CORPUSCULAR HGB CONC 32.5 g/dL (32.0-36.0); MEAN CORPUSCULAR VOLUME 79 fl (80-97); MONOCYTES % (AUTO) 10.8 % (3-13); RED BLOOD COUNT 4.49 10^6/uL (4.35-5.55); TOTAL CELLS COUNTED % (AUTO) 100 %; WHITE BLOOD COUNT 5.9 10^3/uL (4.0-10.5)
[2019-11-27 11:14] LABS: ALBUMIN 2.4 g/dL (3.5-5.0); ALKALINE PHOSPHATASE 92 U/L (38-126); ANION GAP 5 (5-19); ASPARTATE AMINO TRANSFERASE 23 U/L (17-59); BILIRUBIN,DIRECT 0.3 mg/dL (0.0-0.4); BILIRUBIN,TOTAL 0.4 mg/dL (0.2-1.3); BLOOD UREA NITROGEN 8 mg/dL (7-20); CALCIUM 7.7 mg/dL (8.4-10.2); CARBON DIOXIDE 34 mmol/L (22-30); CHLORIDE 97 mmol/L (98-107); GLUCOSE 244 mg/dL (75-110); POTASSIUM 3.3 mmol/L (3.6-5.0); TOTAL PROTEIN 5.7 g/dL (6.3-8.2)
[2019-11-27 11:38] LABS: PLATELET COUNT 76 10^3/uL (150-450)
--- NOTE | 2019-11-27 12:41 | PDOC PROGRESS REPORT ---
Subjective Subjective:: This is a 39-year-old male status post left tube thoracostomy for large pleural effusion, causing respiratory distress. Patient continues to have high output serosanguineous fluid from his left chest tube. He denies any shortness of breath, fevers, chills, nausea, vomiting, abdominal pain, dizziness, blurry vision, headache. He denies any complaint today. Reason For Visit: LEFT PLEURAL EFFUSION, METASTATIC PANCREATIC CANCE Physical Exam Vital Signs: Temp Pulse Resp BP Pulse Ox 97.4 F 101 H 20 140/87 H 100 11/27/19 07:43 11/27/19 07:43 11/27/19 04:58 11/27/19 07:43 11/27/19 07:43 Intake & Output 11/26/19 11/27/19 11/28/19 06:59 06:59 06:59 Intake Total 1000 2300 Output Total 725 1535 Balance 275 765 Weight 80 kg 79.3 kg Exam: General appearance: PRESENT: no acute distress, cooperative Head exam: PRESENT: atraumatic, normocephalic Eye exam: PRESENT: EOMI, PERRLA. ABSENT: scleral icterus Mouth exam: PRESENT: moist, neck supple Neck exam: ABSENT: meningismus, tenderness, thyromegaly, tracheal deviation Respiratory exam: PRESENT: unlabored, other - Chest tube with serosanguineous output, approximately 550cc over 24 hours. No air leak. ABSENT: tachypnea, wheezes Cardiovascular exam: PRESENT: RRR Pulses: PRESENT: normal radial pulses GI/Abdominal exam: PRESENT: soft. ABSENT: distended, guarding, rebound, tend erness Rectal exam: PRESENT: deferred Extremities exam: ABSENT: clubbing Musculoskeletal exam: ABSENT: deformity Neurological exam: PRESENT: alert, awake, oriented to person, oriented to place, oriented to time, oriented to situation Psychiatric exam: ABSENT: agitated, anxious Focused psych exam: ABSENT: delusional Skin exam: ABSENT: cyanosis, erythema, jaundice Results Laboratory Results: 11/27/19 10:25 11/27/19 10:25 11/27/19 11/27/19 10:25 10:25 WBC 5.9 RBC 4.49 Hgb 11.4 L Hct 35.2 L MCV 79 L MCH 25.5 L MCHC 32.5 RDW 18.0 H Plt Count 76 L Seg Neutrophils % 75.0 Sodium 136.1 L Potassium 3.3 L Chloride 97 L Carbon Dioxide 34 H Anion Gap 5 BUN 8 Creatinine 0.52 Est GFR ( Amer) > 60 Glucose 244 H Calcium 7.7 L Total Bilirubin 0.4 AST 23 Alkaline Phosphatase 92 Total Protein 5.7 L Albumin 2.4 L 11/25/19 13:40 Troponin I < 0.012 NT-Pro-B Natriuret Pep 105 Impressions: Chest X-Ray 11/25/19 12:18 IMPRESSION: Large left pleural effusion. Assessment & Plan - Diagnosis (1) Pleural effusion Is this a current diagnosis for this admission?: Yes - Time Time Spent with patient: Less than 15 minutes - Plan Summary Plan Summary: This is a 39-year-old male status post chest tube insertion for a large volume pleural effusion on the left. The patient continues to have large volume output. There has been approximately 550 cc of serosanguineous output over 24 hours. In order for chest tube removal, there should be less than 150 cc in 24 hours. Continue chest tube for now. Patient may require further interventions, for chest tube removal. This could possibly include VATS, versus chemical pleurodesis, versus Pleurx catheter placement. We will continue to follow.
--- NOTE | 2019-11-27 15:40 | PDOC PROGRESS REPORT ---
Subjective Progress Note for:: 11/27/19 Reason For Visit: LEFT PLEURAL EFFUSION, METASTATIC PANCREATIC CANCE 11/27/2019 Large left pleural effusion, metastatic pancreatic cancer, hypertension, diabetes Physical Exam Vital Signs: Temp Pulse Resp BP Pulse Ox 97.4 F 99 20 140/87 H 100 11/27/19 07:43 11/27/19 13:54 11/27/19 04:58 11/27/19 07:43 11/27/19 07:43 Intake & Output 11/26/19 11/27/19 11/28/19 06:59 06:59 06:59 Intake Total 1000 2300 Output Total 725 1535 Balance 275 765 Weight 80 kg 79.3 kg General appearance: PRESENT: no acute distress, other - Patient is in good spirits Respiratory exam: PRESENT: other - Chest tube continues to drain Cardiovascular exam: PRESENT: RRR. ABSENT: diastolic murmur, rubs, systolic murmur Neurological exam: PRESENT: alert, awake, oriented to person, oriented to place, oriented to time, oriented to situation, CN II-XII grossly intact. ABSENT: motor sensory deficit Psychiatric exam: PRESENT: appropriate affect, normal mood. ABSENT: homicidal ideation, suicidal ideation Results Laboratory Results: 11/27/19 10:25 11/27/19 10:25 11/27/19 11/27/19 10:25 10:25 WBC 5.9 RBC 4.49 Hgb 11.4 L Hct 35.2 L MCV 79 L MCH 25.5 L MCHC 32.5 RDW 18.0 H Plt Count 76 L Seg Neutrophils % 75.0 Sodium 136.1 L Potassium 3.3 L Chloride 97 L Carbon Dioxide 34 H Anion Gap 5 BUN 8 Creatinine 0.52 Est GFR ( Amer) > 60 Glucose 244 H Calcium 7.7 L Total Bilirubin 0.4 AST 23 Alkaline Phosphatase 92 Total Protein 5.7 L Albumin 2.4 L 11/25/19 13:40 Troponin I < 0.012 NT-Pro-B Natriuret Pep 105 Impressions: Chest X-Ray 11/25/19 12:18 IMPRESSION: Large left pleural effusion. Assessment and Plan - Diagnosis (1) Hypertension Is this a current diagnosis for this admission?: Yes (2) Diabetes Is this a current diagnosis for this admission?: Yes (3) History of colon cancer, stage IV Is this a current diagnosis for this admission?: Yes (4) Pancreatic cancer metastasized to liver Is this a current diagnosis for this admission?: Yes (5) Pleural effusion Is this a current diagnosis for this admission?: Yes - Plan Summary Summary: 11/26/2019 She was admitted through the emergency room secondary to shortness of breath due to a large left pleural effusion. This was probably as a result of his pancreatic cancer. General surgery place the chest tube on the left side with almost immediate drainage of 4000 cc of a combination of probable malignant fluid and there is serosanguinous fluid.. Patient appears to have put out around 400 cc of fluid since stabilizing last night in the ER. Patient has felt better since the procedure and has maintained a O2 saturation between 90 and 99% on room air. Temperature is 97.8, pulse is steady at 105, blood pressure 131/87. Patient's potassium remains low at 3.2 and this will be corrected. Glucose is around 200 and stable. Patient's calcium this morning was 8.0 Magnesium was low at 1.5 and magnesium will be replaced Patient's Duragesic patch and oxycodone codon will be added to his pain regimen Patient appears to be hemodynamically and medically stable and was told that surgery will be orchestrating the majority of his care for this admission. Patient's only real complaint is of being hungry. 11/27/2019 Patient remains slightly tachycardic. 107 down to 99. Blood pressures appear to be averaging around 140/80 Oxygen saturations are in the high 90s up to 100 on 3 L of nasal cannula On admission platelets were 125 today they are down to 76 White count is normal , hemoglobin is normal Blood sugars are elevated in the mid 200s. Patient is currently being treated with a sliding scale. Will add a low dose of Lantus at nighttime, check a hemoglobin A1c We will follow surgery's recommendation concerning chest tube and pleural effusion - Time Time Spent with patient: 25-34 minutes
[2019-11-27] MEDS ORDERED: INSULIN GLARGINE,HUM.REC.ANLOG 1,000 UNIT/10 ML VIAL (PYX) SUBCUT SCH (22:00)
[2019-11-27] MEDS ORDERED: INSULIN GLARGINE,HUM.REC.ANLOG 1,000 UNIT/10 ML VIAL SUBCUT SCH (22:00)
[2019-11-28] MEDS: OXYCODONE HCL IR 5 MG TABLET PO SCH ×5 (06:00→21:49)
--- NOTE | 2019-11-28 08:55 | RADIOLOGY REPORT (SQ) ---
EXAM DESCRIPTION: CHEST SINGLE VIEW COMPLETED DATE/TIME: 11/28/2019 8:38 am REASON FOR STUDY: check chest tube placement COMPARISON: 11/25/2019 EXAM PARAMETERS: NUMBER OF VIEWS: One view. TECHNIQUE: Single frontal radiographic view of the chest acquired. RADIATION DOSE: NA LIMITATIONS: None. FINDINGS: LUNGS AND PLEURA: There is a left-sided pneumothorax new from prior study. Large-bore lef t-sided chest tube is in place. [id number] remains in place. Small left effusion. Persistent ai rspace disease in the left lung although difficult to assess due to pneumothorax. MEDIASTINUM AND HILAR STRUCTURES: No masses. Contour normal. HEART AND VASCULAR STRUCTURES: Heart normal in size. Normal vasculature. BONES: No acute findings. HARDWARE: None in the chest. OTHER: No other significant finding. IMPRESSION: 30 to 40% left-sided pneumothorax. New from prior study. Small left effusion. Large-b ore left-sided chest tube is in place. COMMENT: This report was called to Chrissy, the patient's nurse at08:48 on 11/28/2019. TECHNICAL DOCUMENTATION: JOB ID: [id number] [email or web address] All Rights Reserved Reading location - IP/workstation name: [email or web address]
[2019-11-28] MEDS: INSULIN LISPRO 100 UNIT/ML 3 ML VIAL SUBCUT SCH ×4 (09:00→21:52)
--- NOTE | 2019-11-28 09:08 | PDOC PROGRESS REPORT ---
Subjective Progress Note for:: 11/28/19 Subjective:: Patient actually overall feels better, appetite is improved considerably over the last 48 hours, he is in better spirits overall. Chest tube put out about 200 cc over the last 24 hours although the nurse worries about positioning. Apparently the patient notes after the dressing was changed he has had a lot of pain there in the last 24 hours. Reason For Visit: LEFT PLEURAL EFFUSION, METASTATIC PANCREATIC CANCE Physical Exam Vital Signs: Temp Pulse Resp BP Pulse Ox 98.0 F 90 17 138/90 H 100 11/28/19 07:21 11/28/19 07:21 11/28/19 07:21 11/28/19 07:21 11/28/19 07:21 Intake & Output 11/27/19 11/28/19 11/29/19 06:59 06:59 06:59 Intake Total 2300 1338 Output Total 1535 375 Balance 765 963 Weight 79.3 kg 80.1 kg General appearance: PRESENT: no acute distress, well-developed, well-nourished Head exam: PRESENT: atraumatic, normocephalic Eye exam: PRESENT: conjunctiva pink, EOMI, PERRLA. ABSENT: scleral icterus Ear exam: PRESENT: normal external ear exam Mouth exam: PRESENT: moist, tongue midline Neck exam: ABSENT: carotid bruit, JVD, lymphadenopathy, thyromegaly Respiratory exam: PRESENT: clear to auscultation duong. ABSENT: rales, rhonchi, w heezes Cardiovascular exam: PRESENT: RRR. ABSENT: diastolic murmur, rubs, systolic murmur Pulses: PRESENT: normal dorsalis pedis pul Vascular exam: PRESENT: normal capillary refill GI/Abdominal exam: PRESENT: normal bowel sounds, soft. ABSENT: distended, guarding, mass, organolmegaly, rebound, tenderness Rectal exam: PRESENT: deferred Extremities exam: PRESENT: full ROM. ABSENT: calf tenderness, clubbing, pedal edema Neurological exam: PRESENT: alert, awake, oriented to person, oriented to place, oriented to time, oriented to situation, CN II-XII grossly intact. ABSENT: motor sensory deficit Psychiatric exam: PRESENT: appropriate affect, normal mood. ABSENT: homicidal ideation, suicidal ideation Skin exam: PRESENT: dry, intact, warm. ABSENT: cyanosis, rash Results Laboratory Results: 11/27/19 10:25 11/27/19 10:25 11/27/19 11/27/19 10:25 10:25 WBC 5.9 RBC 4.49 Hgb 11.4 L Hct 35.2 L MCV 79 L MCH 25.5 L MCHC 32.5 RDW 18.0 H Plt Count 76 L Seg Neutrophils % 75.0 Sodium 136.1 L Potassium 3.3 L Chloride 97 L Carbon Dioxide 34 H Anion Gap 5 BUN 8 Creatinine 0.52 Est GFR ( Amer) > 60 Glucose 244 H Calcium 7.7 L Total Bilirubin 0.4 AST 23 Alkaline Phosphatase 92 Total Protein 5.7 L Albumin 2.4 L 11/25/19 13:40 Troponin I < 0.012 NT-Pro-B Natriuret Pep 105 Impressions: Chest X-Ray 11/28/19 00:00 IMPRESSION: 30 to 40% left-sided pneumothorax. New from prior study. Small left effusion. Large-bore left-sided chest tube is in place. Assessment & Plan - Diagnosis (1) Pleural effusion Is this a current diagnosis for this admission?: Yes Plan: In likely malignant but awaiting results, continue with chest tube per surg ical's team, ultimately I think we need to convert him to a Pleurx catheter. (2) Pancreatic cancer metastasized to liver Is this a current diagnosis for this admission?: Yes Plan: Once the chest tube issue is resolved, we would like to consider second line therapy, discussed CODE STATUS with patient and he wants to remain full code, patient and family wants to continue to treat this cancer aggressively. - Time Time Spent with patient: 35 or more minutes
[2019-11-28] MEDS: DOCUSATE SODIUM 100 MG CAPSULE PO SCH (09:58)
[2019-11-28] MEDS: FAMOTIDINE 20 MG TABLET PO SCH ×2 (09:58→21:49)
[2019-11-28] MEDS: CLONIDINE HCL 0.1 MG TABLET PO SCH (09:58)
--- NOTE | 2019-11-28 11:29 | PDOC PROGRESS REPORT ---
Subjective Progress Note for:: 11/28/19 Reason For Visit: LEFT PLEURAL EFFUSION, METASTATIC PANCREATIC CANCE Patient feeling better; this morning's chest x-ray demonstrated 3040% pneumothorax; patient was placed on waterseal to suction. He feels better. Physical Exam Vital Signs: Temp Pulse Resp BP Pulse Ox 98.0 F 90 17 138/90 H 100 11/28/19 07:21 11/28/19 07:21 11/28/19 07:21 11/28/19 07:21 11/28/19 07:21 Intake & Output 11/27/19 11/28/19 11/29/19 06:59 06:59 06:59 Intake Total 2300 1338 Output Total 1535 375 100 Balance 765 963 -100 Weight 79.3 kg 80.1 kg General appearance: PRESENT: no acute distress Respiratory exam: PRESENT: other - Some fluctuation of the chest tube action of vessels; drainage diminished significantly over the last 12 hours. Results Laboratory Results: 11/27/19 10:25 11/27/19 10:25 11/27/19 10:25 WBC 5.9 RBC 4.49 Hgb 11.4 L Hct 35.2 L MCV 79 L MCH 25.5 L MCHC 32.5 RDW 18.0 H Plt Count 76 L Seg Neutrophils % 75.0 11/25/19 13:40 Troponin I < 0.012 NT-Pro-B Natriuret Pep 105 Impressions: Chest X-Ray 11/28/19 00:00 IMPRESSION: 30 to 40% left-sided pneumothorax. New from prior study. Small left effusion. Large-bore left-sided chest tube is in place. Assessment & Plan - Diagnosis (1) Pleural effusion Is this a current diagnosis for this admission?: Yes Plan: Impression: Hospital day #4 status post chest tube insertion for massive left pleural effusion, clinically improved; cytology pending on the pleural fluid; developed a pneumothorax and chest tube put to suction this morning. Commendations: 1. We will check chest x-ray at 2 PM today to ensure left lung is up 2. Agree with Dr. Florez; patient may be an appropriate candidate for a Pleurx catheter insertion. (2) Pancreatic cancer metastasized to liver Is this a current diagnosis for this admission?: Yes - Time Time Spent with patient: 15-24 minutes Medications reviewed and adjusted accordingly: Yes Anticipated discharge: Home - Inpatient Certification Based on my medical assessment, after consideration of the patient's comorbid ities, presenting symptoms, or acuity I expect that the services needed warrant INPATIENT care.: Yes I certify that my determination is in accordance with my understanding of Medicare's requirements for reasonable and necessary INPATIENT services [42 CFR 412.3e].: Yes
--- NOTE | 2019-11-28 13:52 | PDOC PROGRESS REPORT ---
Subjective Progress Note for:: 11/28/19 Reason For Visit: LEFT PLEURAL EFFUSION, METASTATIC PANCREATIC CANCE admitted for large left malignant pleural effusion, metastatic pancreatic cancer, hypertension, diabetes Physical Exam Vital Signs: Temp Pulse Resp BP Pulse Ox 98.0 F 90 17 138/90 H 100 11/28/19 07:21 11/28/19 07:21 11/28/19 07:21 11/28/19 07:21 11/28/19 07:21 Intake & Output 11/27/19 11/28/19 11/29/19 06:59 06:59 06:59 Intake Total 2300 1338 Output Total 1535 375 100 Balance 765 963 -100 Weight 79.3 kg 80.1 kg General appearance: PRESENT: mild distress, other - Patient states he is having more left chest wall pain and just does not feel as good Respiratory exam: PRESENT: decreased breath sounds - On the left Cardiovascular exam: PRESENT: RRR. ABSENT: diastolic murmur, rubs, systolic murmur Neurological exam: PRESENT: alert, awake, oriented to person, oriented to place, oriented to time, oriented to situation, CN II-XII grossly intact. ABSENT: motor sensory deficit Psychiatric exam: PRESENT: appropriate affect, flat affect, normal mood. ABSENT: homicidal ideation, suicidal ideation Results Laboratory Results: 11/27/19 10:25 11/27/19 10:25 11/25/19 13:40 Troponin I < 0.012 NT-Pro-B Natriuret Pep 105 Impressions: Chest X-Ray 11/28/19 00:00 IMPRESSION: 30 to 40% left-sided pneumothorax. New from prior study. Small left effusion. Large-bore left-sided chest tube is in place. Assessment and Plan - Diagnosis (1) Hypertension Is this a current diagnosis for this admission?: Yes (2) Diabetes Is this a current diagnosis for this admission?: Yes (3) History of colon cancer, stage IV Is this a current diagnosis for this admission?: Yes (4) Pancreatic cancer metastasized to liver Is this a current diagnosis for this admission?: Yes (5) Pleural effusion Is this a current diagnosis for this admission?: Yes - Plan Summary Summary: 11/26/2019 She was admitted through the emergency room secondary to shortness of breath due to a large left pleural effusion. This was probably as a result of his pancreatic cancer. General surgery place the chest tube on the left side with almost immediate drainage of 4000 cc of a combination of probable malignant fluid and there is serosanguinous fluid.. Patient appears to have put out around 400 cc of fluid since stabilizing last night in the ER. Patient has felt better since the procedure and has maintained a O2 saturation b etween 90 and 99% on room air. Temperature is 97.8, pulse is steady at 105, blood pressure 131/87. Patient's potassium remains low at 3.2 and this will be corrected. Glucose is around 200 and stable. Patient's calcium this morning was 8.0 Magnesium was low at 1.5 and magnesium will be replaced Patient's Duragesic patch and oxycodone codon will be added to his pain regimen Patient appears to be hemodynamically and medically stable and was told that surgery will be orchestrating the majority of his care for this admission. Patient's only real complaint is of being hungry. 11/27/2019 Patient remains slightly tachycardic. 107 down to 99. Blood pressures appear to be averaging around 140/80 Oxygen saturations are in the high 90s up to 100 on 3 L of nasal cannula On admission platelets were 125 today they are down to 76 White count is normal , hemoglobin is normal Blood sugars are elevated in the mid 200s. Patient is currently being treated with a sliding scale. Will add a low dose of Lantus at nighttime, check a hemoglobin A1c We will follow surgery's recommendation concerning chest tube and pleural effusion 11/28/2019 Temp 98 3, pulse 94, blood pressure 150/88, O2 sat 99% on 3.5 L nasal cannula Blood sugars are still high but I just started Lantus last night. A1c is elev ated at 10 Chest x-ray from today showed a pneumothorax on the left, surgery is aware of this and dressing this issue LAbs are still stable with the exception of his glucose - Time Time Spent with patient: 25-34 minutes
--- NOTE | 2019-11-28 15:20 | RADIOLOGY REPORT (SQ) ---
EXAM DESCRIPTION: CHEST SINGLE VIEW COMPLETED DATE/TIME: 11/28/2019 3:08 pm REASON FOR STUDY: Interval change left pneumothorax COMPARISON: Earlier the same day. NUMBER OF VIEWS: One view. TECHNIQUE: Single frontal radiographic image of the chest acquired. LIMITATIONS: None. FINDINGS: LUNGS AND PLEURA: Left-sided chest tube remains in place with persistent left-sided hydrop neumothorax. The pneumothorax is slightly smaller in size. MEDIASTINUM AND HILAR STRUCTURES: Stable heart size and mediastinal structures. HEART AND VASCULAR STRUCTURES: Stable appearance. BONES: No acute findings. HARDWARE: None in the chest. OTHER: No other significant finding. IMPRESSION: Left-sided pneumothorax is slightly smaller in size when compared to the earlier film. TECHNICAL DOCUMENTATION: JOB ID: [id number] [employer]- All Rights Reserved Reading location - IP/workstation name: [email or web address]
[2019-11-28] MEDS: INSULIN GLARGINE,HUM.REC.ANLOG 1,000 UNIT/10 ML VIAL SUBCUT SCH (21:50)
[2019-11-29] MEDS: ACETAMINOPHEN 325 MG TABLET PO PRN ×2 (00:23→18:12)
[2019-11-29] MEDS: OXYCODONE HCL IR 5 MG TABLET PO SCH ×4 (02:15→21:49)
[2019-11-29] MEDS: INSULIN LISPRO 100 UNIT/ML 3 ML VIAL SUBCUT SCH ×4 (08:06→21:50)
[2019-11-29] MEDS: NORMAL SALINE 1000 ML 1,000 ML IV PRN (08:56)
--- NOTE | 2019-11-29 09:01 | RADIOLOGY REPORT (SQ) ---
EXAM DESCRIPTION: CHEST SINGLE VIEW COMPLETED DATE/TIME: 11/29/2019 8:42 am REASON FOR STUDY: f/u ptx COMPARISON: 11/28/2019 NUMBER OF VIEWS: One view. TECHNIQUE: Single frontal radiographic image of the chest acquired. LIMITATIONS: None. FINDINGS: LUNGS AND PLEURA: Estimated 10% left apical pneumothorax. Right lung is clear. MEDIASTINUM AND HEART: Stable heart size and mediastinal structures. SUPPORT DEVICES: Appropriate location without change. BONY STRUCTURES: No acute findings. HARDWARE: None. OTHER: No other significant finding. IMPRESSION: 10% left apical pneumothorax. Reading location - IP/workstation name: [email or web address]
[2019-11-29] MEDS: DOCUSATE SODIUM 100 MG CAPSULE PO SCH (09:09)
[2019-11-29] MEDS: CLONIDINE HCL 0.1 MG TABLET PO SCH (09:09)
[2019-11-29] MEDS: FAMOTIDINE 20 MG TABLET PO SCH ×2 (09:10→21:47)
[2019-11-29] MEDS: FENTANYL 25 MCG/HR PATCH.TD72 TD SCH (09:11)
--- NOTE | 2019-11-29 11:13 | RADIOLOGY REPORT (SQ) ---
EXAM DESCRIPTION: CHEST SINGLE VIEW COMPLETED DATE/TIME: 11/28/2019 8:40 pm REASON FOR STUDY: pneumonthorax COMPARISON: Earlier the same day. NUMBER OF VIEWS: One view. TECHNIQUE: Single frontal radiographic image of the chest acquired. LIMITATIONS: None. FINDINGS: LUNGS AND PLEURA: Left apical pneumothorax less conspicuous compared to the prior. MEDIASTINUM AND HEART: Stable heart size and mediastinal structures. SUPPORT DEVICES: Appropriate location without change. BONY STRUCTURES: No acute findings. HARDWARE: None. OTHER: No other significant finding. IMPRESSION: Improving left apical pneumothorax. Reading location - IP/workstation name: [email or web address]
[2019-11-29 12:18] LABS: ABSOLUTE EOSINOPHILS # (AUTO) 0.1 10^3/uL (0.0-0.6); ABSOLUTE LYMPHOCYTES (AUTO) 0.8 10^3/uL (0.5-4.7); ABSOLUTE MONOCYTES (AUTO) 0.6 10^3/uL (0.1-1.4); ABSOLUTE NEUT (AUTO) 4.2 10^3/uL (1.7-8.2); BASOPHILS % (AUTO) 0.3 % (0-2); EOSINOPHILS % (AUTO) 0.9 % (0-6); HEMATOCRIT 34.1 % (37.9-51.0); LYMPHOCYTES % (AUTO) 14.5 % (13-45); MEAN CORPUSCULAR HEMOGLOBIN 25.5 pg (27.0-33.4); MEAN CORPUSCULAR HGB CONC 32.3 g/dL (32.0-36.0); MEAN CORPUSCULAR VOLUME 79 fl (80-97); MONOCYTES % (AUTO) 10.8 % (3-13); RED BLOOD COUNT 4.32 10^6/uL (4.35-5.55); RED CELL DISTRIBUTION WIDTH 18.9 % (11.5-14.0); SEGMENTED NEUTROPHILS % (AUTO) 73.5 % (42-78); TOTAL CELLS COUNTED % (AUTO) 100 %; WHITE BLOOD COUNT 5.8 10^3/uL (4.0-10.5)
--- NOTE | 2019-11-29 12:20 | PDOC PROGRESS REPORT ---
Subjective Progress Note for:: 11/29/19 Subjective:: Denies any shortness of breath at this time. Reason For Visit: LEFT PLEURAL EFFUSION, METASTATIC PANCREATIC CANCE Physical Exam Vital Signs: Temp Pulse Resp BP Pulse Ox 98.2 F 103 H 16 128/84 H 100 11/29/19 07:27 11/29/19 07:27 11/29/19 07:27 11/29/19 07:27 11/29/19 07:27 Intake & Output 11/28/19 11/29/19 11/30/19 06:59 06:59 06:59 Intake Total 1338 1220 Output Total 375 200 Balance 963 1020 Weight 80.1 kg 66.5 kg General appearance: PRESENT: no acute distress, cooperative Respiratory exam: PRESENT: other - Decreased breath sounds on the left side. The chest tube is intact. There is a very small rare air leak seen while chest tube is on 20 cm H2O suction. Cardiovascular exam: PRESENT: RRR Results Laboratory Results: 11/25/19 13:40 Troponin I < 0.012 NT-Pro-B Natriuret Pep 105 Impressions: Chest X-Ray 11/29/19 00:00 IMPRESSION: 10% left apical pneumothorax. Assessment & Plan - Diagnosis (1) Pleural effusion Is this a current diagnosis for this admission?: Yes Plan: Status post chest tube placement, responded well however he does have a 10% pneumothorax that appears improved from yesterday however his x-ray last night showed minimal pneumothorax. Reluctant to put in another chest tube. We will keep the chest tube on suction and repeat chest x-ray tomorrow. - Time Time Spent with patient: Less than 15 minutes
[2019-11-29 12:26] LABS: BLOOD UREA NITROGEN 7 mg/dL (7-20); GLUCOSE 150 mg/dL (75-110); POTASSIUM 3.4 mmol/L (3.6-5.0)
[2019-11-29 12:31] LABS: CARBON DIOXIDE 38 mmol/L (22-30); CHLORIDE 100 mmol/L (98-107)
[2019-11-29 12:40] LABS: ANION GAP 2 (5-19)
[2019-11-29 12:47] LABS: PLATELET COUNT 75 10^3/uL (150-450)
--- NOTE | 2019-11-29 13:33 | PDOC PROGRESS REPORT ---
Subjective Progress Note for:: 11/29/19 Subjective:: Patient was seen on morning rounds. He denies any complaints today. Some pain/discomfort from the chest tube, but states that the pain medications they are giving him is effective. He has not yet heard from surgery this morning. No other complaints. He denies constipation, dysuria. Reason For Visit: LEFT PLEURAL EFFUSION, METASTATIC PANCREATIC CANCE Physical Exam Vital Signs: Temp Pulse Resp BP Pulse Ox 98.4 F 100 18 141/87 H 99 11/29/19 11:27 11/29/19 11:27 11/29/19 11:27 11/29/19 11:27 11/29/19 11:27 Intake & Output 11/28/19 11/29/19 11/30/19 06:59 06:59 06:59 Intake Total 1338 1220 Output Total 375 200 Balance 963 1020 Weight 80.1 kg 66.5 kg General appearance: PRESENT: no acute distress, well-developed, well-nourished Head exam: PRESENT: normocephalic Respiratory exam: PRESENT: decreased breath sounds, unlabored, other - chest tu be in place. Cardiovascular exam: PRESENT: RRR, tachycardia Extremities exam: ABSENT: pedal edema Neurological exam: PRESENT: alert, awake Psychiatric exam: PRESENT: appropriate affect Skin exam: PRESENT: normal color Results Laboratory Results: 11/29/19 11:46 11/29/19 11:46 11/29/19 11/29/19 11:46 11:46 WBC 5.8 RBC 4.32 L Hgb 11.0 L Hct 34.1 L MCV 79 L MCH 25.5 L MCHC 32.3 RDW 18.9 H Plt Count 75 L Seg Neutrophils % 73.5 Sodium 139.9 Potassium 3.4 L Chloride 100 Carbon Dioxide 38 H Anion Gap 2 L BUN 7 Creatinine 0.43 L Est GFR ( Amer) > 60 Glucose 150 H Calcium 8.0 L Magnesium 1.6 11/25/19 13:40 Troponin I < 0.012 NT-Pro-B Natriuret Pep 105 Impressions: Chest X-Ray 11/29/19 00:00 IMPRESSION: 10% left apical pneumothorax. Assessment & Plan - Diagnosis (1) Pancreatic cancer metastasized to liver Is this a current diagnosis for this admission?: Yes Plan: All treatment on hold for now. (2) Pleural effusion Is this a current diagnosis for this admission?: Yes Plan: Chest tube remains in place, as per surgery. Pain currently well controlled. All questions were answered. - Time Time Spent with patient: 15-24 minutes
--- NOTE | 2019-11-29 14:32 | PDOC PROGRESS REPORT ---
Subjective Progress Note for:: 11/29/19 Subjective:: This is a 39-year-old male with stage IV pancreatic cancer with liver metastasis who presented with increasing shortness of breath. He was found to have a large left-sided pleural effusion. He underwent chest tube placement on 11/25 and had 4.5 L of pleural fluid kenan ined. Patient subsequent pneumothorax and was closely followed by surgery. No acute event overnight. Upon encounter, he says that his shortness of breath continued to improve. Repeat chest x-ray shows 10% apical pneumothorax. Denies chest pain. He reports mild discomfort in the chest tube site but this is well controlled with current pain regimen. Reason For Visit: LEFT PLEURAL EFFUSION, METASTATIC PANCREATIC CANCE Physical Exam Vital Signs: Temp Pulse Resp BP Pulse Ox 98.4 F 100 18 141/87 H 99 11/29/19 11:27 11/29/19 11:27 11/29/19 11:27 11/29/19 11:27 11/29/19 11:27 Intake & Output 11/28/19 11/29/19 11/30/19 06:59 06:59 06:59 Intake Total 1338 1220 Output Total 375 200 Balance 963 1020 Weight 176 lb 9.444 oz 146 lb 9.718 oz General appearance: PRESENT: no acute distress, well-developed, well-nourished Head exam: PRESENT: atraumatic, normocephalic Eye exam: PRESENT: conjunctiva pink, EOMI, PERRLA. ABSENT: scleral icterus Ear exam: PRESENT: normal external ear exam Mouth exam: PRESENT: moist, tongue midline Neck exam: ABSENT: carotid bruit, JVD, lymphadenopathy, thyromegaly Respiratory exam: PRESENT: clear to auscultation duong. ABSENT: rales, rhonchi, wheezes Cardiovascular exam: PRESENT: RRR. ABSENT: diastolic murmur, rubs, systolic murmur Pulses: PRESENT: normal dorsalis pedis pul GI/Abdominal exam: PRESENT: normal bowel sounds, soft. ABSENT: distended, guarding, mass, organolmegaly, rebound, tenderness Rectal exam: PRESENT: deferred Extremities exam: PRESENT: full ROM. ABSENT: calf tenderness, clubbing, pedal edema Neurological exam: PRESENT: alert, awake, oriented to person, oriented to place, oriented to time, oriented to situation, CN II-XII grossly intact. ABSENT: motor sensory deficit Results Laboratory Results: 11/29/19 11:46 11/29/19 11:46 11/29/19 11/29/19 11:46 11:46 WBC 5.8 RBC 4.32 L Hgb 11.0 L Hct 34.1 L MCV 79 L MCH 25.5 L MCHC 32.3 RDW 18.9 H Plt Count 75 L Seg Neutrophils % 73.5 Sodium 139.9 Potassium 3.4 L Chloride 100 Carbon Dioxide 38 H Anion Gap 2 L BUN 7 Creatinine 0.43 L Est GFR ( Amer) > 60 Glucose 150 H Calcium 8.0 L Magnesium 1.6 11/25/19 13:40 Troponin I < 0.012 NT-Pro-B Natriuret Pep 105 Impressions: Chest X-Ray 11/29/19 00:00 IMPRESSION: 10% left apical pneumothorax. Assessment and Plan - Diagnosis (1) Pleural effusion Is this a current diagnosis for this admission?: Yes Plan: Possible malignant effusion. S/P drainage with 4.5L initially drained. (2) Pancreatic cancer metastasized to liver Is this a current diagnosis for this admission?: Yes Plan: Oncology following. (3) Pneumothorax Is this a current diagnosis for this admission?: Yes Plan: S/P chest tube placement. Surgery closely following. Repeat CXR tomorrow morning. (4) Hypokalemia Is this a current diagnosis for this admission?: Yes Plan: Replace with PO Potassium. - Plan Summary Summary: 11/26/2019 She was admitted through the emergency room secondary to shortness of breath due to a large left pleural effusion. This was probably as a result of his pancreatic cancer. General surgery place the chest tube on the left side with almost immediate drainage of 4000 cc of a combination of probable malignant fluid and there is serosanguinous fluid.. Patient appears to have put out around 400 cc of fluid since stabilizing last night in the ER. Patient has felt better since the procedure and has maintained a O2 saturation between 90 and 99% on room air. Temperature is 97.8, pulse is steady at 105, blood pressure 131/87. Patient's potassium remains low at 3.2 and this will be corrected. Glucose is around 200 and stable. Patient's calcium this morning was 8.0 Magnesium was low at 1.5 and magnesium will be replaced Patient's Duragesic patch and oxycodone codon will be added to his pain regimen Patient appears to be hemodynamically and medically stable and was told that surgery will be orchestrating the majority of his care for this admission. Patient's only real complaint is of being hungry. 11/27/2019 Patient remains slightly tachycardic. 107 down to 99. Blood pressures appear to be averaging around 140/80 Oxygen saturations are in the high 90s up to 100 on 3 L of nasal cannula On admission platelets were 125 today they are down to 76 White count is normal , hemoglobin is normal Blood sugars are elevated in the mid 200s. Patient is currently being treated with a sliding scale. Will add a low dose of Lantus at nighttime, check a hemoglobin A1c We will follow surgery's recommendation concerning chest tube and pleural effusion 11/28/2019 Temp 98 3, pulse 94, blood pressure 150/88, O2 sat 99% on 3.5 L nasal cannula Blood sugars are still high but I just started Lantus last night. A1c is elevated at 10 Chest x-ray from today showed a pneumothorax on the left, surgery is aware of this and dressing this issue LAbs are still stable with the exception of his glucose - Time Time Spent with patient: 25-34 minutes
[2019-11-29] MEDS: POTASSIUM CHLORIDE 10 MEQ TABLET.ER PO SCH ×2 (15:26→21:47)
[2019-11-29] MEDS ORDERED: OXYCODONE HCL IR 5 MG TABLET PO ONE (18:30)
[2019-11-29] MEDS: INSULIN GLARGINE,HUM.REC.ANLOG 1,000 UNIT/10 ML VIAL SUBCUT SCH (21:49)
[2019-11-30] MEDS: NORMAL SALINE 1000 ML 1,000 ML IV PRN ×2 (01:45→17:23)
[2019-11-30] MEDS: OXYCODONE HCL IR 5 MG TABLET PO SCH ×2 (03:30→09:02)
[2019-11-30] MEDS: INSULIN LISPRO 100 UNIT/ML 3 ML VIAL SUBCUT SCH ×4 (08:11→22:18)
--- NOTE | 2019-11-30 08:29 | RADIOLOGY REPORT (SQ) ---
EXAM DESCRIPTION: CHEST SINGLE VIEW COMPLETED DATE/TIME: 11/30/2019 8:13 am REASON FOR STUDY: reassess pneumo COMPARISON: 11/29/2019 EXAM PARAMETERS: NUMBER OF VIEWS: One view. TECHNIQUE: Single frontal radiographic view of the chest acquired. RADIATION DOSE: NA LIMITATIONS: None. FINDINGS: LUNGS AND PLEURA: Large bore left-sided chest tube in place, unchanged. There is increase d size of the left apical pneumothorax measuring 22 mm maximally, previously 12 mm. There is persist ent left basilar effusion and consolidation, increased from prior. Unremarkable right hemithorax. MEDIASTINUM AND HILAR STRUCTURES: Stable. HEART AND VASCULAR STRUCTURES: Stable. BONES: No acute findings. HARDWARE: Large bore left-sided chest tube, stable. Left subclavian base chest port with catheter ti p at cavoatrial junction. OTHER: No other significant finding. IMPRESSION: Stable large bore left-sided chest tube with increased size of the left apical pneumotho rax (now measuring 22 mm, previously 12 mm maximally). Increased left basilar consolidation, likely combination of effusion and atelectasis/ airspace diseas e. TECHNICAL DOCUMENTATION: JOB ID: [id number] [employer]- All Rights Reserved Reading location - IP/workstation name: [email or web address]
--- NOTE | 2019-11-30 08:39 | PDOC PROGRESS REPORT ---
Subjective Progress Note for:: 11/30/19 Subjective:: Patient doing better over the last 24 hours, apparently over 24-hour. Nursing tells me there was only about 100 cc output. Reason For Visit: LEFT PLEURAL EFFUSION, METASTATIC PANCREATIC CANCE Physical Exam Vital Signs: Temp Pulse Resp BP Pulse Ox 98.4 F 97 18 156/95 H 100 11/30/19 07:53 11/30/19 07:53 11/30/19 07:53 11/30/19 07:53 11/30/19 07:53 Intake & Output 11/29/19 11/30/19 12/01/19 06:59 06:59 06:59 Intake Total 1220 2580 Output Total 200 1550 Balance 1020 1030 Weight 66.5 kg 84.4 kg General appearance: PRESENT: no acute distress, well-developed, well-nourished Head exam: PRESENT: atraumatic, normocephalic Eye exam: PRESENT: conjunctiva pink, EOMI, PERRLA. ABSENT: scleral icterus Ear exam: PRESENT: normal external ear exam Mouth exam: PRESENT: moist, tongue midline Neck exam: ABSENT: carotid bruit, JVD, lymphadenopathy, thyromegaly Respiratory exam: PRESENT: clear to auscultation duong. ABSENT: rales, rhonchi, wheezes Cardiovascular exam: PRESENT: RRR. ABSENT: diastolic murmur, rubs, systolic murmur Pulses: PRESENT: normal dorsalis pedis pul Vascular exam: PRESENT: normal capillary refill GI/Abdominal exam: PRESENT: normal bowel sounds, soft. ABSENT: distended, guarding, mass, organolmegaly, rebound, tenderness Rectal exam: PRESENT: deferred Extremities exam: PRESENT: full ROM. ABSENT: calf tenderness, clubbing, pedal edema Neurological exam: PRESENT: alert, awake, oriented to person, oriented to place, oriented to time, oriented to situation, CN II-XII grossly intact. ABSENT: motor sensory deficit Psychiatric exam: PRESENT: appropriate affect, normal mood. ABSENT: homicidal ideation, suicidal ideation Skin exam: PRESENT: dry, intact, warm. ABSENT: cyanosis, rash Results Laboratory Results: 11/29/19 11:46 11/30/19 05:50 11/29/19 11/29/19 11/30/19 11:46 11:46 05:50 WBC 5.8 RBC 4.32 L Hgb 11.0 L Hct 34.1 L MCV 79 L MCH 25.5 L MCHC 32.3 RDW 18.9 H Plt Count 75 L Seg Neutrophils % 73.5 Sodium 139.9 Potassium 3.4 L 3.4 L Chloride 100 Carbon Dioxide 38 H Anion Gap 2 L BUN 7 Creatinine 0.43 L Est GFR ( Amer) > 60 Glucose 150 H Calcium 8.0 L Magnesium 1.6 11/25/19 13:40 Troponin I < 0.012 NT-Pro-B Natriuret Pep 105 Impressions: Chest X-Ray 11/30/19 07:00 IMPRESSION: Stable large bore left-sided chest tube with increased size of the left apical pneumothorax (now measuring 22 mm, previously 12 mm maximally). Increased left basilar consolidation, likely combination of effusion and atelectasis/ airspace disease. Assessment & Plan - Diagnosis (1) Pleural effusion Is this a current diagnosis for this admission?: Yes Plan: Less output, cytology is negative so I wonder if ultimately the chest tube can be pulled. (2) Pancreatic cancer metastasized to liver Is this a current diagnosis for this admission?: Yes Plan: Further therapy as an outpatient planned - Time Time Spent with patient: 15-24 minutes
[2019-11-30] MEDS: FAMOTIDINE 20 MG TABLET PO SCH ×2 (09:03→22:20)
[2019-11-30] MEDS: POTASSIUM CHLORIDE 10 MEQ TABLET.ER PO SCH ×3 (09:03→17:22)
[2019-11-30] MEDS: CLONIDINE HCL 0.1 MG TABLET PO SCH (09:03)
[2019-11-30] MEDS: DOCUSATE SODIUM 100 MG CAPSULE PO SCH (09:03)
--- NOTE | 2019-11-30 09:57 | PDOC PROGRESS REPORT ---
Subjective Progress Note for:: 11/30/19 Subjective:: This is a 39-year-old male status post left tube thoracostomy for large pleural effusion, causing respiratory distress. Patient's chest tube has stopped producing fluid. He reports more discomfort today. He denies any shortness of breath, fevers, chills, nausea, vomiting, abdominal pain, dizziness, blurry vision, headache. Reason For Visit: LEFT PLEURAL EFFUSION, METASTATIC PANCREATIC CANCE Physical Exam Vital Signs: Temp Pulse Resp BP Pulse Ox 98.4 F 97 18 156/95 H 100 11/30/19 07:53 11/30/19 07:53 11/30/19 07:53 11/30/19 07:53 11/30/19 07:53 Intake & Output 11/29/19 11/30/19 12/01/19 06:59 06:59 06:59 Intake Total 1220 2580 Output Total 200 1550 Balance 1020 1030 Weight 66.5 kg 84.4 kg Exam: General appearance: PRESENT: no acute distress, cooperative Head exam: PRESENT: atraumatic, normocephalic Eye exam: PRESENT: EOMI, PERRLA. ABSENT: scleral icterus Mouth exam: PRESENT: moist, neck supple Neck exam: ABSENT: meningismus, tenderness, thyromegaly, tracheal deviation Respiratory exam: PRESENT: unlabored, other - Chest tube with serous output, approximately 100cc over 24 hours. No air leak. ABSENT: tachypnea, wheezes Cardiovascular exam: PRESENT: RRR Pulses: PRESENT: normal radial pulses GI/Abdominal exam: PRESENT: soft. ABSENT: distended, guarding, rebound, tenderness Rectal exam: PRESENT: deferred Extremities exam: ABSENT: clubbing Musculoskeletal exam: ABSENT: deformity Neurological exam: PRESENT: alert, awake, oriented to person, oriented to place, oriented to time, oriented to situation Psychiatric exam: ABSENT: agitated, anxious Focused psych exam: ABSENT: delusional Skin exam: ABSENT: cyanosis, erythema, jaundice Results Laboratory Results: 11/29/19 11:46 11/30/19 05:50 11/29/19 11/29/19 11/30/19 11:46 11:46 05:50 WBC 5.8 RBC 4.32 L Hgb 11.0 L Hct 34.1 L MCV 79 L MCH 25.5 L MCHC 32.3 RDW 18.9 H Plt Count 75 L Seg Neutrophils % 73.5 Sodium 139.9 Potassium 3.4 L 3.4 L Chloride 100 Carbon Dioxide 38 H Anion Gap 2 L BUN 7 Creatinine 0.43 L Est GFR ( Amer) > 60 Glucose 150 H Calcium 8.0 L Magnesium 1.6 11/25/19 13:40 Troponin I < 0.012 NT-Pro-B Natriuret Pep 105 Impressions: Chest X-Ray 11/30/19 07:00 IMPRESSION: Stable large bore left-sided chest tube with increased size of the left apical pneumothorax (now measuring 22 mm, previously 12 mm maximally). Increased left basilar consolidation, likely combination of effusion and atelectasis/ airspace disease. Assessment & Plan - Diagnosis (1) Pleural effusion Is this a current diagnosis for this admission?: Yes - Time Time Spent with patient: Less than 15 minutes - Plan Summary Plan Summary: This is a 39-year-old male with a malignant pleural effusion. Patient has decreasing output from his left-sided tube thoracostomy today. Unfortunately, he is reaccumulating fluid as well as air in the left chest. I believe that the tube is malfunctioning. The patient will require replacement of a thoracostomy tube. I have recommended placement of a Pleurx catheter versus VATS in the OR tomorrow. I have discussed this at length with the patient and his family. They have chosen placement of a Pleurx catheter, in an effort to facilitate his discharge home. I will consult social security assessor for home health, to arrange for medical supplies and care of the Pleurx catheter at home. Risks/benefits discu ssed, informed consent obtained, and all questions answered.
--- NOTE | 2019-11-30 13:30 | PDOC PROGRESS REPORT ---
Subjective Progress Note for:: 11/30/19 Subjective:: This is a 39-year-old male with stage IV pancreatic cancer with liver metastasis who presented with increasing shortness of breath. He was found to have a large left-sided pleural effusion. He underwent chest tube placement on 11/25 and had 4.5 L of pleural fluid kenan ined. Patient subsequent pneumothorax and was closely followed by surgery. 11/29: No acute event overnight. Upon encounter, he says that his shortness of breath continued to improve. Repeat chest x-ray shows 10% apical pneumothorax. Denies chest pain. He reports mild discomfort in the chest tube site but this is well controlled with current pain regimen. 11/30: No acute event overnight. Repeat chest x-ray shows slight increase in the pneumothorax and recurrence of left pleural effusion. Patient appears comfortable upon encounter. He denies acute shortness of breath and says he feels the same as yesterday. Denies chest pain. Discussed with surgery who is planning for Pleurx catheter placement tomorrow morning. Reason For Visit: LEFT PLEURAL EFFUSION, METASTATIC PANCREATIC CANCE Physical Exam Vital Signs: Temp Pulse Resp BP Pulse Ox 98.4 F 97 18 156/95 H 100 11/30/19 07:53 11/30/19 07:53 11/30/19 07:53 11/30/19 07:53 11/30/19 07:53 Intake & Output 11/29/19 11/30/19 12/01/19 06:59 06:59 06:59 Intake Total 1220 2580 Output Total 200 1550 Balance 1020 1030 Weight 146 lb 9.718 oz 186 lb 1.122 oz General appearance: PRESENT: no acute distress, well-developed, well-nourished Head exam: PRESENT: atraumatic, normocephalic Eye exam: PRESENT: conjunctiva pink, EOMI, PERRLA. ABSENT: scleral icterus Ear exam: PRESENT: normal external ear exam Mouth exam: PRESENT: moist, tongue midline Neck exam: ABSENT: carotid bruit, JVD, lymphadenopathy, thyromegaly Respiratory exam: PRESENT: rhonchi. ABSENT: rales, wheezes Cardiovascular exam: PRESENT: RRR. ABSENT: diastolic murmur, rubs, systolic murmur Pulses: PRESENT: normal dorsalis pedis pul GI/Abdominal exam: PRESENT: normal bowel sounds, soft. ABSENT: distended, guarding, mass, organolmegaly, rebound, tenderness Rectal exam: PRESENT: deferred Extremities exam: PRESENT: full ROM. ABSENT: calf tenderness, clubbing, pedal edema Neurological exam: PRESENT: alert, awake, oriented to person, oriented to place, oriented to time, oriented to situation, CN II-XII grossly intact. ABSENT: motor sensory deficit Results Laboratory Results: 11/29/19 11:46 11/30/19 05:50 11/29/19 11/29/19 11/30/19 11:46 11:46 05:50 WBC 5.8 RBC 4.32 L Hgb 11.0 L Hct 34.1 L MCV 79 L MCH 25.5 L MCHC 32.3 RDW 18.9 H Plt Count 75 L Seg Neutrophils % 73.5 Sodium 139.9 Potassium 3.4 L 3.4 L Chloride 100 Carbon Dioxide 38 H Anion Gap 2 L BUN 7 Creatinine 0.43 L Est GFR ( Amer) > 60 Glucose 150 H Calcium 8.0 L Magnesium 1.6 11/25/19 13:40 Troponin I < 0.012 NT-Pro-B Natriuret Pep 105 Impressions: Chest X-Ray 11/30/19 07:00 IMPRESSION: Stable large bore left-sided chest tube with increased size of the left apical pneumothorax (now measuring 22 mm, previously 12 mm maximally). Increased left basilar consolidation, likely combination of effusion and ate lectasis/ airspace disease. Assessment and Plan - Diagnosis (1) Pleural effusion Is this a current diagnosis for this admission?: Yes Plan: Possible malignant effusion. S/P drainage with 4.5L initially drained. 11/30: Discussed with surgery who is planning for Pleurx catheter placement tomorrow morning. (2) Pneumothorax Is this a current diagnosis for this admission?: Yes Plan: As per number 1. S/P chest tube placement. Surgery closely following. (3) Pancreatic cancer metastasized to liver Is this a current diagnosis for this admission?: Yes Plan: Oncology following. (4) Hypokalemia Is this a current diagnosis for this admission?: Yes Plan: 11/30: Increase PO Potassium to 40 meqs BID. - Plan Summary Summary: 11/26/2019 She was admitted through the emergency room secondary to shortness of breath due to a large left pleural effusion. This was probably as a result of his pancreatic cancer. General surgery place the chest tube on the left side with almost immediate drainage of 4000 cc of a combination of probable malignant fl uid and there is serosanguinous fluid.. Patient appears to have put out around 400 cc of fluid since stabilizing last night in the ER. Patient has felt better since the procedure and has maintained a O2 saturation between 90 and 99% on room air. Temperature is 97.8, pulse is steady at 105, blood pressure 131/87. Patient's potassium remains low at 3.2 and this will be corrected. Glucose is around 200 and stable. Patient's calcium this morning was 8.0 Magnesium was low at 1.5 and magnesium will be replaced Patient's Duragesic patch and oxycodone codon will be added to his pain regimen Patient appears to be hemodynamically and medically stable and was told that surgery will be orchestrating the majority of his care for this admission. Patient's only real complaint is of being hungry. 11/27/2019 Patient remains slightly tachycardic. 107 down to 99. Blood pressures appear to be averaging around 140/80 Oxygen saturations are in the high 90s up to 100 on 3 L of nasal cannula On admission platelets were 125 today they are down to 76 White count is normal , hemoglobin is normal Blood sugars are elevated in the mid 200s. Patient is currently being treated with a sliding scale. Will add a low dose of Lantus at nighttime, check a hemoglobin A1c We will follow surgery's recommendation concerning chest tube and pleural effusion 11/28/2019 Temp 98 3, pulse 94, blood pressure 150/88, O2 sat 99% on 3.5 L nasal cannula Blood sugars are still high but I just started Lantus last night. A1c is elevated at 10 Chest x-ray from today showed a pneumothorax on the left, surgery is aware of this and dressing this issue LAbs are still stable with the exception of his glucose
[2019-11-30] MEDS: OXYCODONE HCL IR 5 MG TABLET PO PRN (20:36)
[2019-11-30] MEDS: INSULIN GLARGINE,HUM.REC.ANLOG 1,000 UNIT/10 ML VIAL SUBCUT SCH (22:20)
[2019-12-01 06:12] LABS: BLOOD UREA NITROGEN 6 mg/dL (7-20); GLUCOSE 134 mg/dL (75-110)
[2019-12-01 06:13] LABS: ANION GAP 5 (5-19); CARBON DIOXIDE 34 mmol/L (22-30); CHLORIDE 101 mmol/L (98-107)
--- NOTE | 2019-12-01 06:45 | PDOC PROGRESS REPORT ---
Subjective Reason For Visit: LEFT PLEURAL EFFUSION, METASTATIC PANCREATIC CANCE Physical Exam Vital Signs: Temp Pulse Resp BP Pulse Ox 98.5 F 100 19 131/87 H 100 11/30/19 23:25 12/01/19 02:00 11/30/19 23:25 11/30/19 23:25 11/30/19 23:25 Intake & Output 11/29/19 11/30/19 12/01/19 06:59 06:59 06:59 Intake Total 1220 2580 1943 Output Total 200 1550 750 Balance 1020 1030 1193 Weight 66.5 kg 84.4 kg 74.4 kg Exam: General appearance: PRESENT: no acute distress, cooperative Head exam: PRESENT: atraumatic, normocephalic Eye exam: PRESENT: EOMI, PERRLA. ABSENT: scleral icterus Mouth exam: PRESENT: moist, neck supple Neck exam: ABSENT: meningismus, tenderness, thyromegaly, tracheal deviation Respiratory exam: PRESENT: unlabored, other - Chest tube with minimal serous output. No air leak. ABSENT: tachypnea, wheezes Cardiovascular exam: PRESENT: RRR Pulses: PRESENT: normal radial pulses GI/Abdominal exam: PRESENT: soft. ABSENT: distended, guarding, rebound, tenderness Rectal exam: PRESENT: deferred Extremities exam: ABSENT: clubbing Musculoskeletal exam: ABSENT: deformity Neurological exam: PRESENT: alert, awake, oriented to person, oriented to place, oriented to time, oriented to situation Psychiatric exam: ABSENT: agitated, anxious Focused psych exam: ABSENT: delusional Skin exam: ABSENT: cyanosis, erythema, jaundice Results Laboratory Results: 11/29/19 11:46 12/01/19 04:40 11/30/19 12/01/19 05:50 04:40 Sodium 140.2 Potassium 3.4 L 4.0 Chloride 101 Carbon Dioxide 34 H Anion Gap 5 BUN 6 L Creatinine 0.35 L Est GFR ( Amer) > 60 Glucose 134 H Calcium 8.0 L 11/25/19 13:40 Troponin I < 0.012 NT-Pro-B Natriuret Pep 105 Impressions: Chest X-Ray 11/30/19 07:00 IMPRESSION: Stable large bore left-sided chest tube with increased size of the left apical pneumothorax (now measuring 22 mm, previously 12 mm maximally). Increased left basilar consolidation, likely combination of effusion and atelectasis/ airspace disease. Assessment & Plan - Diagnosis (1) Pleural effusion Is this a current diagnosis for this admission?: Yes - Time Time Spent with patient: Less than 15 minutes - Plan Summary Plan Summary: This is a 39-year-old male with a malignant pleural effusion. Patient has experienced decreasing output from his left-sided tube thoracostomy. Unfortunately, he is reaccumulating fluid as well as air in the left chest. I believe that the tube is malfunctioning. The patient will require replacement of a thoracostomy tube. I have recommended placement of a Pleurx catheter versus VATS in the OR today. I have discussed this at length with the patient and his family. They have chosen placement of a Pleurx catheter, in an effort to facilitate his discharge home. I will consult vp digital marketing social media and crm for home health, to arrange for medical supplies and care of the Pleurx catheter at home. Risks/benefits discussed, informed consent obtained, and all questions answered.
[2019-12-01] MEDS ORDERED: MIDAZOLAM 2 MG/2 ML INJ ONE (07:08)
[2019-12-01] MEDS ORDERED: FENTANYL CITRATE INJ/PF 100 MCG/2 ML AMPUL ONE (07:08)
[2019-12-01] MEDS ORDERED: PROPOFOL INJ 200 MG/20 ML VIAL IV ONE ×2 (07:08→07:15)
[2019-12-01] MEDS ORDERED: BUPIVACAINE HCL 0.25 % INJ/PF (2.5 MG/1 ML) 30 ML VIAL ONE (07:14)
[2019-12-01] MEDS ORDERED: DEXMEDETOMIDINE INJ 80 MCG/20 ML VIAL IV ONE (07:15)
[2019-12-01] MEDS ORDERED: DIPHENHYDRAMINE HCL 50 MG/ML VIAL IV PRN (07:23)
[2019-12-01] MEDS ORDERED: FENTANYL CITRATE INJ/PF 100 MCG/2 ML AMPUL IV PRN ×3 (07:23)
[2019-12-01] MEDS ORDERED: MEPERIDINE HCL/PF INJ 25 MG/1 ML DISP.SYRIN IV PRN (07:23)
[2019-12-01] MEDS ORDERED: MORPHINE SULFATE 10 MG/ML INJ IV PRN (07:23)
[2019-12-01] MEDS ORDERED: PROMETHAZINE HCL INJ 25 MG/1 ML VIAL IV PRN ×2 (07:23)
[2019-12-01] MEDS: INSULIN LISPRO 100 UNIT/ML 3 ML VIAL SUBCUT SCH ×4 (07:32→21:32)
[2019-12-01] MEDS ORDERED: CEFAZOLIN INJ 1 GM VIAL ONE (07:41)
--- NOTE | 2019-12-01 08:09 | PDOC PROGRESS REPORT ---
Subjective Progress Note for:: 12/01/19 Subjective:: Patient went down for Pleurx catheter placement today Reason For Visit: LEFT PLEURAL EFFUSION, METASTATIC PANCREATIC CANCE Physical Exam Vital Signs: Temp Pulse Resp BP Pulse Ox 98.4 F 104 H 20 148/95 H 100 12/01/19 03:41 12/01/19 06:50 12/01/19 03:41 12/01/19 03:41 12/01/19 03:41 Intake & Output 11/30/19 12/01/19 12/02/19 06:59 06:59 06:59 Intake Total 2580 1943 853 Output Total 1550 750 0 Balance 1030 1193 853 Weight 84.4 kg 74.4 kg General appearance: PRESENT: no acute distress, well-developed, well-nourished Head exam: PRESENT: atraumatic, normocephalic Eye exam: PRESENT: conjunctiva pink, EOMI, PERRLA. ABSENT: scleral icterus Ear exam: PRESENT: normal external ear exam Mouth exam: PRESENT: moist, tongue midline Neck exam: ABSENT: carotid bruit, JVD, lymphadenopathy, thyromegaly Respiratory exam: PRESENT: clear to auscultation duong. ABSENT: rales, rhonchi, wheezes Cardiovascular exam: PRESENT: RRR. ABSENT: diastolic murmur, rubs, systolic murmur Pulses: PRESENT: normal dorsalis pedis pul Vascular exam: PRESENT: normal capillary refill GI/Abdominal exam: PRESENT: normal bowel sounds, soft. ABSENT: distended, guarding, mass, organolmegaly, rebound, tenderness Rectal exam: PRESENT: deferred Extremities exam: PRESENT: full ROM. ABSENT: calf tenderness, clubbing, pedal edema Neurological exam: PRESENT: alert, awake, oriented to person, oriented to place, oriented to time, oriented to situation, CN II-XII grossly intact. ABSENT: motor sensory deficit Psychiatric exam: PRESENT: appropriate affect, normal mood. ABSENT: homicidal ideation, suicidal ideation Skin exam: PRESENT: dry, intact, warm. ABSENT: cyanosis, rash Results Laboratory Results: 11/29/19 11:46 12/01/19 04:40 12/01/19 04:40 Sodium 140.2 Potassium 4.0 Chloride 101 Carbon Dioxide 34 H Anion Gap 5 BUN 6 L Creatinine 0.35 L Est GFR ( Amer) > 60 Glucose 134 H Calcium 8.0 L 11/25/19 13:40 Troponin I < 0.012 NT-Pro-B Natriuret Pep 105 Impressions: Chest X-Ray 11/30/19 07:00 IMPRESSION: Stable large bore left-sided chest tube with increased size of the left apical pneumothorax (now measuring 22 mm, previously 12 mm maximally). Increased left basilar consolidation, likely combination of effusion and atelectasis/ airspace disease. Assessment & Plan - Diagnosis (1) Pleural effusion Is this a current diagnosis for this admission?: Yes Plan: Pleurx catheter placement today (2) Pancreatic cancer metastasized to liver Is this a current diagnosis for this admission?: Yes Plan: Plan for second line therapy as an outpatient - Time Time Spent with patient: 15-24 minutes
--- NOTE | 2019-12-01 09:25 | Operative Report ---
Nonrecallable Operative Report DATE OF SURGERY: 12/01/19 PREOPERATIVE DIAGNOSIS: Malignant pleural effusion POSTOPERATIVE DIAGNOSIS: Malignant pleural effusion the left chest. OPERATION: 1. Insertion of left-sided, tunneled intrathoracic drainage catheter (Pleurx) via cutdown method. 2. Removal of previously placed left-sided 32 Beninese tube thoracostomy. SURGEON: JOSEPHINE HANSEN ANESTHESIA: LMAC TISSUE REMOVED OR ALTERED: 350 cc of serosanguineous pleural fluid from the left chest COMPLICATIONS: None apparent ESTIMATED BLOOD LOSS: Minimal PROCEDURE: Drains/implants: Pleurx catheter to the left chest. Procedure in detail: After informed consent was obtained, the patient was brought to the operating room and laid in the right lateral decubitus position. The area of the left chest was prepped and draped in a normal sterile fashion. The previously placed 32 Beninese chest tube resided in the mid axillary line. An area superior and lateral to this was chosen for the insertion site. Due to the previous chest tube dysfunction, a cutdown method was undertaken, to ensure that there were no loculations around the chest tube. An incision was created in the skin, after adequate local anesthesia was administered. Dissection was taken down to the chest wall using sharp dissection and electrocautery. The chest was entered bluntly with a hemostat over top of the rib. A Mary clamp was used to spread the musculature, and the chest cavity was entered. The 32 Beninese chest tube was immediately identified on palpation. The 32 Beninese chest tube was then removed. As expected, there was a large amount of adhesion and loculation surrounding the 32 Beninese chest tube. These loculations were broken with a finger sweep. A large amount of fluid was then identified anteriorly. The Pleurx catheter was tunneled through a separate stab incision, to the insertion site. Next, the Pleurx catheter was inserted into the chest, and directed anteriorly toward the fluid. Next the musculature was closed with 0 Vicryl suture in [id number] fashion. The overlying skin was closed using 4-0 Vicryl Rapide suture in subcuticular fashion. The Pleurx catheter was sutured to the skin using 2-0 nylon suture. A Biopatch was placed over the catheter, and an occlusive dressing was placed. The Pleurx catheter was attached to suction and 350 cc of serosanguineous thoracic fluid was removed from the left chest. Once the drainage of fluid stopped, the catheter was blocked off, and the procedure was concluded. All sponge, instrument, needle counts were correct x2. Condition: Stable.
--- NOTE | 2019-12-01 09:29 | RADIOLOGY REPORT (SQ) ---
EXAM DESCRIPTION: CHEST SINGLE VIEW COMPLETED DATE/TIME: 12/01/2019 9:07 am REASON FOR STUDY: PORTABLE CXR FOR PLEURX INSERTION IN OR 2 COMPARISON: CT chest 11/23/2019 AP chest 11/28/2019, 11/29/2019, 11/30/2019 EXAM PARAMETERS: NUMBER OF VIEWS: One view. TECHNIQUE: Single frontal radiographic view of the chest acquired. RADIATION DOSE: NA LIMITATIONS: Artifact from OR table FINDINGS: LUNGS AND PLEURA: Left large bore chest tube has been removed. A left-sided PleurX cathet er is present with the tip coiled over the apex left hemithorax. Low lung volumes, diffuse interstitial markings are present from expiratory film. Interstitial edema could not be excluded. No pneumothorax. MEDIASTINUM AND HILAR STRUCTURES: No masses. Contour normal. HEART AND VASCULAR STRUCTURES: Stable borderline cardiomegaly BONES: No acute findings. HARDWARE: Left permanent central line tip superior vena cava. New left PleurX catheter in the pleura l space without pneumothorax. OTHER: No other significant finding. IMPRESSION: Low lung volumes with increased interstitial markings Left PleurX catheter in place, no pneumothorax or gross left pleural effusion. TECHNICAL DOCUMENTATION: JOB ID: [id number] [employer]- All Rights Reserved Reading location - IP/workstation name: [email or web address]
[2019-12-01] MEDS: OXYCODONE HCL IR 5 MG TABLET PO PRN ×3 (09:50→22:54)
[2019-12-01] MEDS: CLONIDINE HCL 0.1 MG TABLET PO SCH (09:51)
[2019-12-01] MEDS: POTASSIUM CHLORIDE 10 MEQ TABLET.ER PO SCH ×2 (09:51→13:31)
[2019-12-01] MEDS: DOCUSATE SODIUM 100 MG CAPSULE PO SCH (09:51)
[2019-12-01] MEDS: FAMOTIDINE 20 MG TABLET PO SCH ×2 (09:51→22:53)
[2019-12-01] MEDS: NORMAL SALINE 1000 ML 1,000 ML IV PRN (09:52)
--- NOTE | 2019-12-01 14:09 | PDOC PROGRESS REPORT ---
Subjective Progress Note for:: 12/01/19 Subjective:: This is a 39-year-old male with stage IV pancreatic cancer with liver metastasis who presented with increasing shortness of breath. He was found to have a large left-sided pleural effusion. He underwent chest tube placement on 11/25 and had 4.5 L of pleural fluid kenan ined. Patient subsequent pneumothorax and was closely followed by surgery. 11/29: No acute event overnight. Upon encounter, he says that his shortness of breath continued to improve. Repeat chest x-ray shows 10% apical pneumothorax. Denies chest pain. He reports mild discomfort in the chest tube site but this is well controlled with current pain regimen. 11/30: No acute event overnight. Repeat chest x-ray shows slight increase in the pneumothorax and recurrence of left pleural effusion. Patient appears comfortable upon encounter. He denies acute shortness of breath and says he feels the same as yesterday. Denies chest pain. Discussed with surgery who is planning for Pleurx catheter placement tomorrow morning. 12/01: No acute event overnight. Patient just got back from the OR and had a Pleurx cath placed. Denies chest pain or shortness of breath. Reason For Visit: LEFT PLEURAL EFFUSION, METASTATIC PANCREATIC CANCE Physical Exam Vital Signs: Temp Pulse Resp BP Pulse Ox 98.4 F 104 H 20 148/95 H 100 12/01/19 03:41 12/01/19 06:50 12/01/19 03:41 12/01/19 03:41 12/01/19 03:41 Intake & Output 11/30/19 12/01/19 12/02/19 06:59 06:59 06:59 Intake Total 2580 1943 853 Output Total 1550 750 0 Balance 1030 1193 853 Weight 186 lb 1.122 oz 164 lb 0.383 oz General appearance: PRESENT: no acute distress, well-developed, well-nourished Head exam: PRESENT: atraumatic, normocephalic Eye exam: PRESENT: conjunctiva pink, EOMI, PERRLA. ABSENT: scleral icterus Ear exam: PRESENT: normal external ear exam Mouth exam: PRESENT: moist, tongue midline Neck exam: ABSENT: carotid bruit, JVD, lymphadenopathy, thyromegaly Respiratory exam: PRESENT: clear to auscultation duong. ABSENT: rales, rhonchi, wheezes Cardiovascular exam: PRESENT: RRR. ABSENT: diastolic murmur, rubs, systolic murmur Pulses: PRESENT: normal dorsalis pedis pul GI/Abdominal exam: PRESENT: normal bowel sounds, soft. ABSENT: distended, guarding, mass, organolmegaly, rebound, tenderness Rectal exam: PRESENT: deferred Extremities exam: PRESENT: full ROM. ABSENT: calf tenderness, clubbing, pedal edema Neurological exam: PRESENT: alert, awake, oriented to person, oriented to place, oriented to time, oriented to situation, CN II-XII grossly intact. ABSENT: motor sensory deficit Results Laboratory Results: 11/29/19 11:46 12/01/19 04:40 12/01/19 04:40 Sodium 140.2 Potassium 4.0 Chloride 101 Carbon Dioxide 34 H Anion Gap 5 BUN 6 L Creatinine 0.35 L Est GFR ( Amer) > 60 Glucose 134 H Calcium 8.0 L 11/25/19 13:40 Troponin I < 0.012 NT-Pro-B Natriuret Pep 105 Assessment and Plan - Diagnosis (1) Pleural effusion Is this a current diagnosis for this admission?: Yes Plan: Possible malignant effusion. S/P drainage with 4.5L initially drained. 11/30: Discussed with surgery who is planning for Pleurx catheter placement tomorrow morning. 12/01: Patient just got back from the OR and had a Pleurx cath placed. (2) Pneumothorax Is this a current diagnosis for this admission?: Yes Plan: As per number 1. S/P chest tube placement. Surgery closely following. (3) Pancreatic cancer metastasized to liver Is this a current diagnosis for this admission?: Yes Plan: Oncology following. (4) Hypokalemia Is this a current diagnosis for this admission?: Yes Plan: 11/30: Increase PO Potassium to 40 meqs BID. - Plan Summary Summary: 11/26/2019 She was admitted through the emergency room secondary to shortness of breath due to a large left pleural effusion. This was probably as a result of his pancreatic cancer. General surgery place the chest tube on the left side with almost immediate drainage of 4000 cc of a combination of probable malignant fluid and there is serosanguinous fluid.. Patient appears to have put out around 400 cc of fluid since stabilizing last night in the ER. Patient has felt better since the procedure and has maintained a O2 saturation between 90 and 99% on room air. Temperature is 97.8, pulse is steady at 105, blood pressure 131/87. Patient's potassium remains low at 3.2 and this will be corrected. Glucose is around 200 and stable. Patient's calcium this morning was 8.0 Magnesium was low at 1.5 and magnesium will be replaced Patient's Duragesic patch and oxycodone codon will be added to his pain regimen Patient appears to be hemodynamically and medically stable and was told that surgery will be orchestrating the majority of his care for this admission. Patient's only real complaint is of being hungry. 11/27/2019 Patient remains slightly tachycardic. 107 down to 99. Blood pressures appear to be averaging around 140/80 Oxygen saturations are in the high 90s up to 100 on 3 L of nasal cannula On admission platelets were 125 today they are down to 76 White count is normal , hemoglobin is normal Blood sugars are elevated in the mid 200s. Patient is currently being treated with a sliding scale. Will add a low dose of Lantus at nighttime, check a hemoglobin A1c We will follow surgery's recommendation concerning chest tube and pleural effusion 11/28/2019 Temp 98 3, pulse 94, blood pressure 150/88, O2 sat 99% on 3.5 L nasal cannula Blood sugars are still high but I just started Lantus last night. A1c is elevated at 10 Chest x-ray from today showed a pneumothorax on the left, surgery is aware of this and dressing this issue LAbs are still stable with the exception of his glucose - Time Time Spent with patient: 25-34 minutes
[2019-12-01] MEDS: INSULIN GLARGINE,HUM.REC.ANLOG 1,000 UNIT/10 ML VIAL SUBCUT SCH (21:34)
[2019-12-02] MEDS: NORMAL SALINE 1000 ML 1,000 ML IV PRN (02:59)
--- NOTE | 2019-12-02 07:56 | PDOC PROGRESS REPORT ---
Subjective Progress Note for:: 12/02/19 Subjective:: Looking better, but still very weak, gave instructions to nursing for fluid removal. Reason For Visit: LEFT PLEURAL EFFUSION, METASTATIC PANCREATIC CANCE Physical Exam Vital Signs: Temp Pulse Resp BP Pulse Ox 98.5 F 104 H 18 149/94 H 98 12/01/19 15:03 12/02/19 06:51 12/01/19 15:03 12/01/19 15:03 12/02/19 04:49 Intake & Output 12/01/19 12/02/19 12/03/19 06:59 06:59 06:59 Intake Total 1943 3462 Output Total 750 360 Balance 1193 3102 Weight 74.4 kg 76 kg General appearance: PRESENT: no acute distress, well-developed, well-nourished Head exam: PRESENT: atraumatic, normocephalic Eye exam: PRESENT: conjunctiva pink, EOMI, PERRLA. ABSENT: scleral icterus Ear exam: PRESENT: normal external ear exam Mouth exam: PRESENT: moist, tongue midline Neck exam: ABSENT: carotid bruit, JVD, lymphadenopathy, thyromegaly Respiratory exam: PRESENT: clear to auscultation duong. ABSENT: rales, rhonchi, wheezes Cardiovascular exam: PRESENT: RRR. ABSENT: diastolic murmur, rubs, systolic murmur Pulses: PRESENT: normal dorsalis pedis pul Vascular exam: PRESENT: normal capillary refill GI/Abdominal exam: PRESENT: normal bowel sounds, soft. ABSENT: distended, guar ding, mass, organolmegaly, rebound, tenderness Rectal exam: PRESENT: deferred Extremities exam: PRESENT: full ROM. ABSENT: calf tenderness, clubbing, pedal edema Neurological exam: PRESENT: alert, awake, oriented to person, oriented to place, oriented to time, oriented to situation, CN II-XII grossly intact. ABSENT: motor sensory deficit Psychiatric exam: PRESENT: appropriate affect, normal mood. ABSENT: homicidal ideation, suicidal ideation Skin exam: PRESENT: dry, intact, warm. ABSENT: cyanosis, rash Results Laboratory Results: 11/29/19 11:46 12/01/19 04:40 11/25/19 13:40 Troponin I < 0.012 NT-Pro-B Natriuret Pep 105 Impressions: Chest X-Ray 12/01/19 00:00 IMPRESSION: Low lung volumes with increased interstitial markings Left PleurX catheter in place, no pneumothorax or gross left pleural effusion. Assessment & Plan - Diagnosis (1) Pleural effusion Is this a current diagnosis for this admission?: Yes Plan: s/p pleurx, pt needs home helth set up for fluid removals but pt uninsured so will need to be worked out (2) Pancreatic cancer metastasized to liver Is this a current diagnosis for this admission?: Yes Plan: plan to initiate 2nd line rx as outpt - Time Time Spent with patient: 35 or more minutes
[2019-12-02] MEDS: INSULIN LISPRO 100 UNIT/ML 3 ML VIAL SUBCUT SCH ×2 (08:13→12:06)
--- NOTE | 2019-12-02 09:01 | PDOC PROGRESS REPORT ---
Subjective Progress Note for:: 12/02/19 Subjective:: feels ok, min rt sided chest incisional pain Reason For Visit: LEFT PLEURAL EFFUSION, METASTATIC PANCREATIC CANCE Physical Exam Vital Signs: Temp Pulse Resp BP Pulse Ox 98.2 F 105 H 18 141/81 H 98 12/02/19 08:01 12/02/19 08:01 12/02/19 08:01 12/02/19 08:01 12/02/19 08:01 Intake & Output 12/01/19 12/02/19 12/03/19 06:59 06:59 06:59 Intake Total 1943 3462 Output Total 750 360 Balance 1193 3102 Weight 74.4 kg 76 kg General appearance: PRESENT: no acute distress Head exam: PRESENT: normocephalic Eye exam: PRESENT: EOMI Ear exam: PRESENT: normal external ear exam Mouth exam: PRESENT: moist Neck exam: PRESENT: full ROM Respiratory exam: PRESENT: clear to auscultation duong, decreased breath sounds Cardiovascular exam: PRESENT: RRR Pulses: PRESENT: normal radial pulses, normal femoral pulses Vascular exam: PRESENT: normal capillary refill GI/Abdominal exam: PRESENT: soft Rectal exam: PRESENT: deferred Extremities exam: PRESENT: full ROM Musculoskeletal exam: PRESENT: full ROM Neurological exam: PRESENT: alert, awake, oriented to person Psychiatric exam: PRESENT: agitated, appropriate affect Skin exam: PRESENT: dry Results Laboratory Results: 11/29/19 11:46 12/01/19 04:40 11/25/19 13:40 Troponin I < 0.012 NT-Pro-B Natriuret Pep 105 Assessment & Plan - Time Time Spent with patient: 25-34 minutes - Plan Summary Plan Summary: s/p pleurx catheter insertion and chest tube removal for malignant pleural effusion cxr this am show cathter in good position catheter currently capped off ok to drain prn please reconsult surgery as necessary.
[2019-12-02] MEDS: FENTANYL 25 MCG/HR PATCH.TD72 TD SCH (09:30)
[2019-12-02] MEDS: FAMOTIDINE 20 MG TABLET PO SCH (09:30)
[2019-12-02] MEDS: DOCUSATE SODIUM 100 MG CAPSULE PO SCH (09:30)
[2019-12-02] MEDS: CLONIDINE HCL 0.1 MG TABLET PO SCH (09:30)
[2019-12-02] MEDS: OXYCODONE HCL IR 5 MG TABLET PO PRN (09:33)
--- NOTE | 2019-12-02 09:35 | RADIOLOGY REPORT (SQ) ---
EXAM DESCRIPTION: CHEST SINGLE VIEW COMPLETED DATE/TIME: 12/02/2019 9:01 am REASON FOR STUDY: PleurX follow up COMPARISON: AP view of the chest from 12/01/2019. EXAM PARAMETERS: NUMBER OF VIEWS: One view. TECHNIQUE: An AP view of the chest was obtained. RADIATION DOSE: NA LIMITATIONS: None. FINDINGS: LUNGS AND PLEURA: The pleural and parenchymal opacities in the left hemithorax that obscur e the contour of the left hemidiaphragm and blunt the left lateral costophrenic sulcus are unchanged. There is no pneumothorax. MEDIASTINUM AND HILAR STRUCTURES: Stable mediastinal and hilar contours. HEART AND VASCULAR STRUCTURES: Stable cardiac silhouette. BONES: No acute findings. HARDWARE: Left subclavian vein approach single-lumen port and left sided PleurX catheter. OTHER: No other finding. IMPRESSION: Unchanged radiographic appearance of the chest. TECHNICAL DOCUMENTATION: JOB ID: [id number] [employer]- All Rights Reserved Reading location - IP/workstation name: [email or web address]
[2019-12-02 12:05] VITALS: BP 133/76
[2019-12-02] MEDS: ACETAMINOPHEN 325 MG TABLET PO PRN (13:44)
--- NOTE | 2019-12-02 16:01 | PDOC DISCHARGE SUMMARY ---
Impression - Admit/DC Date/PCP Admission Date/Primary Care Provider: 11/25/19 16:51 PABLO WELCH MD Discharge Date: 12/02/19 - Discharge Diagnosis (1) Pleural effusion Is this a current diagnosis for this admission?: Yes (2) Pneumothorax Is this a current diagnosis for this admission?: Yes (3) Pancreatic cancer metastasized to liver Is this a current diagnosis for this admission?: Yes (4) Hypokalemia Is this a current diagnosis for this admission?: Yes - Additional Information Resuscitation Status: Full Code Discharge Activity: Activity As Tolerated, Balance Activity w/Rest, Energy Conservation Referrals: PABLO WELCH MD [Primary Care Provider] - 12/06/19 3:15 pm Prescriptions: Docusate Sodium [Colace 100 mg Capsule] 100 mg PO DAILY PRN #20 capsule PRN Reason: Home Medications: Clonidine HCl [Catapres 0.1 mg Tablet] 0.1 mg PO DAILY 11/25/19 Fentanyl [Duragesic 25 mcg/hr Transdermal Patch] 1 patch TD Q72H 11/25/19 Ondansetron HCl [Zofran 8 mg Tablet] 8 mg PO Q8HP PRN 11/25/19 Oxycodone HCl [Oxy-Ir 5 mg Tablet] 5 mg PO Q6 11/25/19 Promethazine HCl [Phenergan 25 mg Tablet] 25 mg PO Q6HP PRN 11/25/19 Docusate Sodium [Colace 100 mg Capsule] 100 mg PO DAILY PRN #20 capsule 12/02/19 History of Present Illiness History of Present Illness: Admitting hospitalist's H&P: LEEANN DONALD is a 39 year old male is admitted last night 11/25/2019, with a large left-sided pleural effusion. Patient was symptomatic with shortness of breath. Patient has a history of stage IV pancreatic cancer with metastases. Patient also has hypertension and diabetes. Patient had a chest tube placed in the ER with over 4 L drained. Patient is now to be admitted for chest tube continue drainage. Also pain management. Hospital Course Hospital Course: This is a 39-year-old male with stage IV pancreatic cancer with liver metastases who presented with increasing shortness of breath. He was found to have a large left-sided pleural effusion likely malignant effusion. He underwent chest tube placement on 1/24 and had 4.5 L of pleural fluid d rained. Patient subsequently developed pneumothorax and was closely followed by surgery. His hospital course was prolonged due to his pneumothorax. He had recurrence of pneumothorax on repeat x-rays. His chest tube was later found not to be working and draining well. His code status was also rediscussed and patient was not ready to consider hospice and prefers to remain a full code at this time. Patient and however were receptive and amenable to palliative consult which was placed. He eventually had placement of a Pleurx cath. His pneumothorax did resolve. Pleural effusion also significantly improved. Pleurx cath was drained on day of dsicharge and had 50 cc out. Patient returned to his baseline. He was weaned off O2. He was able to ambulate the hallways on room air with no acute issues or desaturation. Patient will be discharged with home health. He will closely follow-up with Dr. Welch next week. Drain PleurX cath every 2 days not to exceed more than 400 cc per drainage. Physical Exam Vital Signs: Temp Pulse Resp BP Pulse Ox 98.3 F 107 H 16 133/76 H 93 12/02/19 13:55 12/02/19 14:00 12/02/19 13:55 12/02/19 11:59 12/02/19 13:55 Intake & Output 12/01/19 12/02/19 12/03/19 06:59 06:59 06:59 Intake Total 1943 3462 1024 Output Total 750 360 Balance 1193 3102 1024 Weight 164 lb 0.383 oz 167 lb 8.821 oz General appearance: PRESENT: no acute distress, well-developed, well-nourished Head exam: PRESENT: atraumatic, normocephalic Eye exam: PRESENT: conjunctiva pink, EOMI, PERRLA. ABSENT: scleral icterus Ear exam: PRESENT: normal external ear exam Mouth exam: PRESENT: moist, tongue midline Neck exam: ABSENT: carotid bruit, JVD, lymphadenopathy, thyromegaly Respiratory exam: PRESENT: clear to auscultation duong. ABSENT: rales, rhonchi, wheezes Cardiovascular exam: PRESENT: RRR. ABSENT: diastolic murmur, rubs, systolic murmur Pulses: PRESENT: normal dorsalis pedis pul GI/Abdominal exam: PRESENT: normal bowel sounds, soft. ABSENT: distended, guarding, mass, organolmegaly, rebound, tenderness Rectal exam: PRESENT: deferred Neurological exam: PRESENT: alert, awake, oriented to person, oriented to place, oriented to time, oriented to situation, CN II-XII grossly intact. ABSENT: motor sensory deficit Results Laboratory Results: WBC 5.8 10^3/uL (4.0-10.5) 11/29/19 11:46 RBC 4.32 10^6/uL (4.35-5.55) L 11/29/19 11:46 Hgb 11.0 g/dL (13.5-17.0) L 11/29/19 11:46 Hct 34.1 % (37.9-51.0) L 11/29/19 11:46 MCV 79 fl (80-97) L 11/29/19 11:46 MCH 25.5 pg (27.0-33.4) L 11/29/19 11:46 MCHC 32.3 g/dL (32.0-36.0) 11/29/19 11:46 RDW 18.9 % (11.5-14.0) H 11/29/19 11:46 Plt Count 75 10^3/uL (150-450) L 11/29/19 11:46 Lymph % (Auto) 14.5 % (13-45) 11/29/19 11:46 Beadle % (Auto) 10.8 % (3-13) 11/29/19 11:46 Eos % (Auto) 0.9 % (0-6) 11/29/19 11:46 Baso % (Auto) 0.3 % (0-2) 11/29/19 11:46 Absolute Neuts (auto) 4.2 10^3/uL (1.7-8.2) 11/29/19 11:46 Absolute Lymphs (auto) 0.8 10^3/uL (0.5-4.7) 11/29/19 11:46 Absolute Monos (auto) 0.6 10^3/uL (0.1-1.4) 11/29/19 11:46 Absolute Eos (auto) 0.1 10^3/uL (0.0-0.6) 11/29/19 11:46 Absolute Basos (auto) 0.0 10^3/uL (0.0-0.2) 11/29/19 11:46 Seg Neutrophils % 73.5 % (42-78) 11/29/19 11:46 PT 14.6 SEC (11.4-15.4) 11/25/19 18:59 INR 1.13 11/25/19 18:59 APTT 29.6 SEC (23.5-35.8) 11/26/19 04:35 Sodium 140.2 mmol/L (137-145) 12/01/19 04:40 Potassium 4.0 mmol/L (3.6-5.0) 12/01/19 04:40 Chloride 101 mmol/L (98-107) 12/01/19 04:40 Carbon Dioxide 34 mmol/L (22-30) H 12/01/19 04:40 Anion Gap 5 (5-19) 12/01/19 04:40 BUN 6 mg/dL (7-20) L 12/01/19 04:40 Creatinine 0.35 mg/dL (0.52-1.25) L 12/01/19 04:40 Est GFR ( Amer) > 60 (>60) 12/01/19 04:40 Est GFR (MDRD) Non-Af > 60 (>60) 12/01/19 04:40 Glucose 134 mg/dL (75-110) H 12/01/19 04:40 POC Glucose 159 mg/dL (70-110) H 12/02/19 11:57 Hemoglobin A1c % 10.0 % (4.7-6.0) H 11/27/19 10:25 Calcium 8.0 mg/dL (8.4-10.2) L 12/01/19 04:40 Magnesium 1.6 mg/dL (1.6-2.3) 11/29/19 11:46 Total Bilirubin 0.4 mg/dL (0.2-1.3) 11/27/19 10:25 Direct Bilirubin 0.3 mg/dL (0.0-0.4) 11/27/19 10:25 Neonat Total Bilirubin Not Reportable 11/27/19 10:25 Neonat Direct Bilirubin Not Reportable 11/27/19 10:25 Neonat Indirect Bili Not Reportable 11/27/19 10:25 AST 23 U/L (17-59) 11/27/19 10:25 ALT 7 U/L (<50) 11/27/19 10:25 Alkaline Phosphatase 92 U/L (38-126) 11/27/19 10:25 Troponin I < 0.012 ng/mL 11/25/19 13:40 NT-Pro-B Natriuret Pep 105 pg/mL (<125) 11/25/19 13:40 Total Protein 5.7 g/dL (6.3-8.2) L 11/27/19 10:25 Albumin 2.4 g/dL (3.5-5.0) L 11/27/19 10:25 11/25/19 13:40 Troponin I < 0.012 NT-Pro-B Natriuret Pep 105 Impressions: Chest X-Ray 11/25/19 00:00 IMPRESSION: Post left large bore chest tube placement. No pneumothorax. No residual pleural effusion or significant airspace disease. Chest X-Ray 11/25/19 00:00 IMPRESSION: There is marked opacification in the left lung. The appearance is suggestive of edema versus atelectasis. The right lung remains clear, however. Chest X-Ray 11/25/19 12:18 IMPRESSION: Large left pleural effusion. Chest X-Ray 11/28/19 00:00 IMPRESSION: 30 to 40% left-sided pneumothorax. New from prior study. Small left effusion. Large-bore left-sided chest tube is in place. Chest X-Ray 11/28/19 00:00 IMPRESSION: Improving left apical pneumothorax. Chest X-Ray 11/28/19 14:00 IMPRESSION: Left-sided pneumothorax is slightly smaller in size when compared to the earlier film. Chest X-Ray 11/29/19 00:00 IMPRESSION: 10% left apical pneumothorax. Chest X-Ray 11/30/19 07:00 IMPRESSION: Stable large bore left-sided chest tube with increased size of the left apical pneumothorax (now measuring 22 mm, previously 12 mm maximally). Increased left basilar consolidation, likely combination of effusion and atelectasis/ airspace disease. Chest X-Ray 12/01/19 00:00 IMPRESSION: Low lung volumes with increased interstitial markings Left PleurX catheter in place, no pneumothorax or gross left pleural effusion. Chest X-Ray 12/02/19 06:00 IMPRESSION: Unchanged radiographic appearance of the chest. Stroke Is this a Stroke Patient?: No Acute Heart Failure - Is this a Heart Failure Patient?: No
== END 2019-12-02 14:57 | disposition home health service (06) | DRG 436 ==
LOC: ER 12:06 → EH 16:51 → 3S 20:00
PROVIDERS: ADMIT Hospitalist; ATTEND Hospitalist
PROC: 0W9B30Z Drainage of Left Pleural Cavity with Drainage Device, Percutaneous Approach (ICD-10-PCS; 2019-11-25)
PROC: 0WPB30Z Removal of Drainage Device from Left Pleural Cavity, Percutaneous Approach (ICD-10-PCS; 2019-12-01)
PROC: 0W9B00Z Drainage of Left Pleural Cavity with Drainage Device, Open Approach (ICD-10-PCS; principal; 2019-12-01 07:30)
DX: C25.9 Malignant neoplasm of pancreas, unspecified (principal); J91.0 Malignant pleural effusion; C78.7 Secondary malignant neoplasm of liver and intrahepatic bile duct; J95.811 Postprocedural pneumothorax; I10 Essential (primary) hypertension; E11.9 Type 2 diabetes mellitus without complications; E87.6 Hypokalemia; F17.290 Nicotine dependence, other tobacco product, uncomplicated; Z88.1 Allergy status to other antibiotic agents; Z79.84 Long term (current) use of oral hypoglycemic drugs; Z85.038 Personal history of other malignant neoplasm of large intestine; Z80.3 Family history of malignant neoplasm of breast; Z79.899 Other long term (current) drug therapy
CPT/HCPCS: 00520; 36415; 36591; 71045; 71046; 80048; 80053; 82962; 83036; 83735; 83880; 84132; 84484; 85025; 85610; 85730; 88305; 93005; 93010; 96374; 99285; J0690; J1642; J1815; J2250; J2704; J3010; J3475; J3480; J3490; J7030

== ENCOUNTER 2019-12-27 11:27 | Outpatient (CLI) | payer BC ==
[~2019-12-27 11:27] MED LIST changes: -ATROPINE SULFATE INJ 0.4 MG/1 ML VIAL IV PRN; +DEXAMETH 10 MG/ONDANSETRON 16 MG in NS 50 ML IV PRN; -DEXAMETHASONE 10 MG in NS 50 ML IV PRN; -DEXTROSE 5% IV PRN; -DEXTROSE 5%-WATER 250 ML IV PRN; -FAMOTIDINE 20 MG in NS 50 ML IV PRN; -FLUOROURACIL IV PRN; +GEMCITABINE HCL IV PRN; -LEUCOVORIN CALCIUM IV PRN; +NORMAL SALINE 250 ML @ KVO IV PRN; +NORMAL SALINE 250 ML IV PRN; +NORMAL SALINE IV PRN; +ONDANSETRON HCL/PF 16 MG, DEXAMETHASONE SOD PHOSPHATE 10 MG in NORMAL SALINE 50 ML IV PRN; -OXALIPLATIN IV PRN; +PACLITAXEL PROTEIN BOUND IV PRN; -PALONOSETRON 0.25 MG/5 ML VIAL IV PRN; -WATER IV PRN
[2019-12-27 11:53] VITALS: BP 133/85
[2019-12-27] MEDS ORDERED: NORMAL SALINE IV PRN ×2 (12:13→12:14)
[2019-12-27] MEDS ORDERED: PACLITAXEL PROTEIN BOUND IV PRN ×2 (12:13→12:18)
[2019-12-27] MEDS ORDERED: GEMCITABINE HCL IV PRN (12:14)
[2019-12-27] MEDS ORDERED: CONTAINER EMPTY IV PRN (12:18)
== END 2019-12-27 15:00 | disposition home or self-care (01) ==
LOC: II 11:27 → 5TH 12:03 → II 15:00
PROVIDERS: ATTEND Internal Medicine
DX: Z51.11 Encounter for antineoplastic chemotherapy (principal); C25.2 Malignant neoplasm of tail of pancreas
CPT/HCPCS: 96413; 96367; 96417; J3490; J2405; J7050; J1100; J9264; J9201; J1642

== ENCOUNTER 2020-01-10 12:25 | Inpatient (IN) | payer BC ==
--- NOTE | 2020-01-10 12:36 | ER Document Report ---
ED Medical Screen (RME) - General Chief Complaint: Shortness Of Breath Stated Complaint: SHORTNESS OF BREATH Time Seen by Provider: 01/10/20 12:32 Primary Care Provider: GURWINDER MCKEON PA-C [Primary Care Provider] - Follow up as needed Mode of Arrival: Wheelchair Information source: Relative Notes: 39-year-old male presented to ED for stage IV pancreatic cancer. He has a possible pneumothorax and may need a new catheter placed for drainage. He is also very short of breath. He was sent over here by [facility] oncology. He is alert oriented at this time. Patient has no audible breath sounds on the left I have greeted and performed a rapid initial assessment of this patient. A comprehensive ED assessment and evaluation of the patient, analysis of test results and completion of medical decision making process will be conducted by an additional ED providers. TRAVEL OUTSIDE OF THE [place] IN LAST 30 DAYS: No - Related Data Allergies/Adverse Reactions: azithromycin Allergy (Unknown, Verified 01/10/20 12:32) Past Medical History - Past Medical History Cardiac Medical History: Reports: Hx Hypertension Endocrine Medical History: Reports: Hx Diabetes Mellitus Type 2 Malignancy Medical History: Reports Hx Pancreatic Cancer - Stage IV Past Surgical History: Reports: Other - umbilical area I/D. Biopsy pancreatic mass Physical Exam - Vital signs Vitals: Temp Pulse BP Pulse Ox 99.1 F 113 H 142/95 H 99 01/10/20 12:29 01/10/20 12:29 01/10/20 12:29 01/10/20 12:29 Course - Vital Signs Vital signs: Temp Pulse Resp BP Pulse Ox 99.1 F 113 H 142/95 H 99 01/10/20 12:29 01/10/20 12:29 01/10/20 12:29 01/10/20 12:29 Doctor's Discharge - Discharge Referrals: GURWINDER MCKEON PA-C [Primary Care Provider] - Follow up as needed
--- NOTE | 2020-01-10 13:24 | ER Document Report ---
ED General - General Chief Complaint: Shortness Of Breath Stated Complaint: SHORTNESS OF BREATH Time Seen by Provider: 01/10/20 12:32 Primary Care Provider: GURWINDER MCKEON PA-C [ALLIED HEALTH PROFESSIONAL] - Follow up as needed Mode of Arrival: Wheelchair TRAVEL OUTSIDE OF THE [place] IN LAST 30 DAYS: No - HPI Notes: Patient is a 39-year-old male with a history of stage IV pancreatic cancer with a drain implant to the left side of the chest presents per direction of his oncologist as he has been having shortness of breath for the past week and decreased to no breath sounds on the left side. Oncologist thinks that he may need another chest tube placed. He otherwise has been eating and drinking without difficulty. He is urinating normally and having normal bowel movements. states that they do get a pinkish drainage when they drained the chest twice a week. Denies any headache, fever, neck pain, URI, sore throat, chest pain, palpitations, syncope, cough, wheeze, abdominal pain, nausea/vomiting/diarrhea, urinary retention, dysuria, hematuria, or rash. - Related Data Allergies/Adverse Reactions: azithromycin Allergy (Unknown, Verified 01/10/20 12:32) Past Medical History - General Information source: Relative - Social History Smoking Status: Never Smoker Family History: Reviewed & Not Pertinent Patient has suicidal ideation: No Patient has homicidal ideation: No - Past Medical History Cardiac Medical History: Reports: Hx Hypertension Endocrine Medical History: Reports: Hx Diabetes Mellitus Type 2 Malignancy Medical History: Reports Hx Pancreatic Cancer - Stage IV Past Surgical History: Reports: Other - umbilical area I/D. Biopsy pancreatic mass Review of Systems - Review of Systems -: Yes All other systems reviewed and negative Physical Exam - Vital signs Vitals: Temp Pulse BP Pulse Ox 99.1 F 113 H 142/95 H 99 01/10/20 12:29 01/10/20 12:29 01/10/20 12:29 01/10/20 12:29 - Notes Notes: PHYSICAL EXAMINATION: GENERAL: no acute distress, appears somewhat cachectic. HEAD: Atraumatic, normocephalic. EYES: Pupils equal round and reactive to light, extraocular movements intact, sclera anicteric, conjunctiva are normal. ENT: Nares patent and without discharge. oropharynx clear without exudates. No tonsilar hypertrophy or erythema. Moist mucous membranes. NECK: Normal range of motion, supple without lymphadenopathy LUNGS: clear on the right. no breath sounds on the left. trachea appears midline, but difficult to fully assess. HEART: Regular rate and rhythm without murmurs, rubs, gallops. ABDOMEN: Soft, nontender, nondistended abdomen. No guarding, no rebound. Normal bowel sounds present. No CVA tenderness bilaterally. Musculoskeletal: FROM to passive/active. Strength 5+/5. Extremities: No cyanosis, clubbing, or edema b/l. Peripheral pulses 2+. Capillary refill less than 3 seconds. NEUROLOGICAL: Cranial nerves grossly intact. Normal speech. PSYCH: Normal mood, normal affect. SKIN: Warm, Dry, normal turgor, no rashes or lesions noted. Course - Re-evaluation Re-evalutation: 01/10/20 14:[address] Hu who wanted me to speak with surgery. Dr. De La Torre did review imaging and states that he would not recommend any invasive procedure at this time. Recommends lasix. I did speak with Dr. Florez who does agree with admission and cefepime IV. We will place the Pleurx on suction. Dr. Kong will come eval the patient. 01/10/20 14:35 Dr. Kong will accept patient to medical floor. - Vital Signs Vital signs: Temp Pulse Resp BP Pulse Ox 99.1 F 113 H 25 H 146/90 H 98 01/10/20 12:29 01/10/20 12:29 01/10/20 13:11 01/10/20 13:11 01/10/20 13:11 - Laboratory Result Diagrams: 01/10/20 13:09 01/10/20 13:09 Laboratory results interpreted by me: 01/10/20 01/10/20 13:09 13:09 WBC 10.9 H RBC 3.03 L Hgb 8.1 L Hct 24.2 L MCH 26.8 L RDW 17.1 H Lymph % (Auto) 10.5 L Absolute Neuts (auto) 8.7 H Seg Neutrophils % 80.4 H Potassium 3.4 L Carbon Dioxide 34 H Creatinine 0.43 L Glucose 115 H Alkaline Phosphatase 136 H Albumin 2.9 L Discharge - Discharge Clinical Impression: Pleural effusion Pneumothorax Qualifiers: Pneumothorax type: other pneumothorax Qualified Code(s): J93.83 - Other pneumothorax Pneumonia involving left lung Qualifiers: Pneumonia type: due to unspecified organism Lung location: unspecified part of lung Qualified Code(s): J18.9 - Pneumonia, unspecified organism Condition: Stable Disposition: ADMITTED INPATIENT Admitting Provider: Dilan (Hospitalist) Unit Admitted: Medical Floor Referrals: GURWINDER MCKEON PA-C [ALLIED HEALTH PROFESSIONAL] - Follow up as needed
[2020-01-10 13:27] LABS: ABSOLUTE BASOPHILS # (AUTO) 0.1 10^3/uL (0.0-0.2); ABSOLUTE EOSINOPHILS # (AUTO) 0.1 10^3/uL (0.0-0.6); ABSOLUTE LYMPHOCYTES (AUTO) 1.1 10^3/uL (0.5-4.7); ABSOLUTE MONOCYTES (AUTO) 0.9 10^3/uL (0.1-1.4); ABSOLUTE NEUT (AUTO) 8.7 10^3/uL (1.7-8.2); BASOPHILS % (AUTO) 0.6 % (0-2); EOSINOPHILS % (AUTO) 0.5 % (0-6); HEMATOCRIT 24.2 % (37.9-51.0); HEMOGLOBIN 8.1 g/dL (13.5-17.0); LYMPHOCYTES % (AUTO) 10.5 % (13-45); MEAN CORPUSCULAR HEMOGLOBIN 26.8 pg (27.0-33.4); MEAN CORPUSCULAR HGB CONC 33.5 g/dL (32.0-36.0); MEAN CORPUSCULAR VOLUME 80 fl (80-97); PLATELET COUNT 263 10^3/uL (150-450); RED BLOOD COUNT 3.03 10^6/uL (4.35-5.55); RED CELL DISTRIBUTION WIDTH 17.1 % (11.5-14.0); SEGMENTED NEUTROPHILS % (AUTO) 80.4 % (42-78); TOTAL CELLS COUNTED % (AUTO) 100 %; WHITE BLOOD COUNT 10.9 10^3/uL (4.0-10.5)
[2020-01-10 13:39] LABS: ALBUMIN 2.9 g/dL (3.5-5.0); ALKALINE PHOSPHATASE 136 U/L (38-126); ASPARTATE AMINO TRANSFERASE 24 U/L (17-59); BILIRUBIN,TOTAL 0.6 mg/dL (0.2-1.3); BLOOD UREA NITROGEN 9 mg/dL (7-20); CALCIUM 8.4 mg/dL (8.4-10.2); CARBON DIOXIDE 34 mmol/L (22-30); CHLORIDE 103 mmol/L (98-107); GLUCOSE 115 mg/dL (75-110); POTASSIUM 3.4 mmol/L (3.6-5.0); TOTAL PROTEIN 6.7 g/dL (6.3-8.2)
[2020-01-10 13:44] LABS: ANION GAP 5 (5-19)
[2020-01-10] MEDS ORDERED: POTASSIUM CHLORIDE 10 MEQ TABLET.ER PO ONE (13:49)
[2020-01-10] MEDS ORDERED: FUROSEMIDE INJ/PF 40 MG/4 ML SDV IV ONE (13:49)
--- NOTE | 2020-01-10 13:55 | RADIOLOGY REPORT (SQ) ---
EXAM DESCRIPTION: CHEST 2 VIEWS COMPLETED DATE/TIME: 01/10/2020 12:57 pm REASON FOR STUDY: short of breath possible left pneumothorax COMPARISON: 12/02/2019 EXAM PARAMETERS: NUMBER OF VIEWS: two views TECHNIQUE: Digital Frontal and Lateral radiographic views of the chest acquired. RADIATION DOSE: NA LIMITATIONS: none FINDINGS: LUNGS AND PLEURA: Left apical- left upper lung pneumothorax, appears larger than on the p rior examination. There is approximately 37.6 mm of pleural separation. Increasing left pleural eff usion and consolidation/airspace disease in the left hemithorax. The right lung remains clear. MEDIASTINUM AND HILAR STRUCTURES: No masses or contour abnormalities. HEART AND VASCULAR STRUCTURES: The left cardiac margin is obscured by the underlying pleuroparenchym al changes. BONES: No acute findings. HARDWARE: Left subclavian vein single-lumen port and left-sided PleurX catheter are again noted. OTHER: No other significant finding. IMPRESSION: 1. Left apical- left upper lung pneumothorax appears larger than on the prior examinati on dated 12/02/2019. Increasing left pleural effusion and consolidation/airspace disease in the left hemithorax. Correlation suggested. COMMENT: 1. The results of this examination were discussed with emergency department channel rougher on 08/2020 at 13:30 hours. TECHNICAL DOCUMENTATION: JOB ID: [id number] 2010 [employer]- All Rights Reserved Reading location - IP/workstation name: [email or web address]
[2020-01-10] MEDS ORDERED: CEFEPIME 2 GM/D5W RTU 2 GM/50 ML RTUPB IV ONE (14:01)
[2020-01-10] MEDS ORDERED: PROMETHAZINE HCL 25 MG TABLET PO PRN (14:51)
[2020-01-10] MEDS ORDERED: ONDANSETRON HCL 8 MG TABLET PO PRN (14:51)
[2020-01-10] MEDS ORDERED: OXYCODONE HCL IR 5 MG TABLET PO PRN ×2 (14:51→20:52)
[2020-01-10 16:09] LABS: APPEARANCE,URINE CLEAR; BILIRUBIN,URINE NEGATIVE (NEGATIVE); COLOR,URINE YELLOW; GLUCOSE, URINE NEGATIVE (NEGATIVE); KETONES,URINE NEGATIVE (NEGATIVE); PROTEIN,URINE NEGATIVE (NEGATIVE); URINE SPECIFIC GRAVITY 1.011
[2020-01-10] MEDS: DOCUSATE SODIUM 100 MG CAPSULE PO SCH (18:26)
--- NOTE | 2020-01-10 19:35 | EKG REPORT ---
SEVERITY:- OTHERWISE NORMAL ECG - SINUS TACHYCARDIA : Confirmed by: Regis Robledo 10-Jan-2020 19:34:31
--- NOTE | 2020-01-10 19:37 | PDOC H&P ---
History of Present Illness Admission Date/PCP: 01/10/20 15:04 PABLO WELCH MD History of Present Illness: LEEANN DONALD is a 39 year old male with a history of stage IV pancreatic cancer who has a recurrent pleural effusion on the left and has a Pleurx drain in place that he drains every couple of days. He said he was short of breath today and had a regular scheduled follow-up with Dr. Welch and was sent over here from the office. He was found to have substantial recurrence of the pleural effusion and also an apical pneumothorax. He was admitted for further management. Past Medical History Cardiac Medical History: Reports: Hypertension Endocrine Medical History: Reports: Diabetes Mellitus Type 2 Malignancy Medical History: Reports: Pancreatic Cancer - Stage IV Past Surgical History Past Surgical History: Reports: Other - umbilical area I/D. Biopsy pancreatic mass Social History Smoking Status: Never Smoker Frequency of Alcohol Use: None Hx Recreational Drug Use: Yes Drugs: None Hx Prescription Drug Abuse: No Family History Family History: Reviewed & Not Pertinent Parental Family History Reviewed: Yes Children Family History Reviewed: Yes Sibling(s) Family History Reviewed.: Yes Medication/Allergy Home Medications: Clonidine HCl [Catapres 0.1 mg Tablet] 0.1 mg PO DAILY 11/25/19 Ondansetron HCl [Zofran 8 mg Tablet] 8 mg PO Q8HP PRN 11/25/19 Oxycodone HCl [Oxy-Ir 5 mg Tablet] 5 - 15 mg PO Q4HP PRN 11/25/19 Promethazine HCl [Phenergan 25 mg Tablet] 25 mg PO Q6HP PRN 11/25/19 Docusate Sodium [Colace 100 mg Capsule] 200 mg PO BID 01/10/20 Fentanyl [Duragesic 75 Mcg/Hr Transdermal Patch] 75 mcg TD Q72H 01/10/20 Ibuprofen [Motrin 800 mg Tablet] 800 mg PO Q8HP PRN 01/10/20 Allergies/Adverse Reactions: azithromycin Allergy (Unknown, Verified 01/10/20 12:32) Review of Systems All systems: reviewed and no additional remarkable complaints except as stated - All systems were reviewed and were negative except as noted in the HPI Physical Exam Vital Signs: Temp Pulse Resp BP Pulse Ox 99.2 F 110 H 16 146/75 H 95 01/10/20 17:04 01/10/20 17:04 01/10/20 17:04 01/10/20 17:04 01/10/20 17:04 Intake & Output 01/09/20 01/10/20 01/11/20 06:59 06:59 06:59 Intake Total 50 Output Total 1050 Balance -1000 Weight 81.193 kg General appearance: PRESENT: no acute distress, cooperative, disheveled Head exam: PRESENT: atraumatic, normocephalic Eye exam: PRESENT: EOMI, PERRLA. ABSENT: conjunctival injection, nystagmus, scleral icterus Ear exam: PRESENT: normal external ear exam Mouth exam: PRESENT: dry mucosa, neck supple Teeth exam: PRESENT: poor dentation Throat exam: ABSENT: post pharyngeal erythema Neck exam: PRESENT: full ROM. ABSENT: carotid bruit, JVD, lymphadenopathy, meningismus, tenderness, thyromegaly Respiratory exam: PRESENT: decreased breath sounds - Left base, symmetrical, unlabored, other - Pleurx drain left lateral chest, no subcutaneous emphysema. ABSENT: accessory muscle use, chest wall tenderness, prolonged expiratory phas, retraction, rhonchi, tachypnea, wheezes Cardiovascular exam: PRESENT: RRR, +S1, +S2 Pulses: PRESENT: normal carotid pulses Vascular exam: PRESENT: normal capillary refill GI/Abdominal exam: PRESENT: normal bowel sounds, soft. ABSENT: distended, guarding, rebound, tenderness Extremities exam: ABSENT: clubbing, pedal edema Musculoskeletal exam: PRESENT: normal inspection. ABSENT: deformity Neurological exam: PRESENT: alert, awake, oriented to person, oriented to place, oriented to situation, CN II-XII grossly intact. ABSENT: motor sensory deficit Psychiatric exam: PRESENT: flat affect Skin exam: PRESENT: dry, warm Results Laboratory Results: 01/10/20 13:09 01/10/20 13:09 01/10/20 01/10/20 01/10/20 13:09 13:09 13:09 WBC 10.9 H RBC 3.03 L Hgb 8.1 L Hct 24.2 L MCV 80 MCH 26.8 L MCHC 33.5 RDW 17.1 H Plt Count 263 Seg Neutrophils % 80.4 H Sodium 141.6 Potassium 3.4 L Chloride 103 Carbon Dioxide 34 H Anion Gap 5 BUN 9 Creatinine 0.43 L Est GFR ( Amer) > 60 Glucose 115 H Calcium 8.4 Magnesium 1.9 Total Bilirubin 0.6 AST 24 Alkaline Phosphatase 136 H Total Protein 6.7 Albumin 2.9 L Urine Color Urine Appearance Urine pH Ur Specific [place] Urine Protein Urine Glucose (UA) Urine Ketones Urine Blood 01/10/20 15:38 WBC RBC Hgb Hct MCV MCH MCHC RDW Plt Count Seg Neutrophils % Sodium Potassium Chloride Carbon Dioxide Anion Gap BUN Creatinine Est GFR ( Amer) Glucose Calcium Magnesium Total Bilirubin AST Alkaline Phosphatase Total Protein Albumin Urine Color YELLOW Urine Appearance CLEAR Urine pH 5.0 Ur Specific [place] 1.011 Urine Protein NEGATIVE Urine Glucose (UA) NEGATIVE Urine Ketones NEGATIVE Urine Blood NEGATIVE Impressions: Chest X-Ray 01/10/20 12:34 IMPRESSION: 1. Left apical- left upper lung pneumothorax appears larger than on the prior examination dated 12/02/2019. Increasing left pleural effusion and consolidation/airspace disease in the left hemithorax. Correlation suggested. Assessment and Plan - Diagnosis (1) Malignant pleural effusion Is this a current diagnosis for this admission?: Yes Plan: He has a drain in place, but they do not have the equipment to hook it up upstairs right now. When we can get into the radiology department to get a Pleur-evac placed tomorrow, will get the kit and set it up to low suction. (2) Pneumothorax Qualifiers: Pneumothorax type: other pneumothorax Qualified Code(s): J93.83 - Other p neumothorax Is this a current diagnosis for this admission?: Yes Plan: Chest tube to suction as noted above (3) Pancreatic cancer metastasized to liver Is this a current diagnosis for this admission?: Yes Plan: Dr. Welch will see him in consultation - Time Time Spent with patient: 35 or more minutes - Inpatient Certification Based on my medical assessment, after consideration of the patient's comorbidi ties, presenting symptoms, or acuity I expect that the services needed warrant INPATIENT care.: Yes I certify that my determination is in accordance with my understanding of Sandra mcnair's requirements for reasonable and necessary INPATIENT services [42 CFR 412.3e].: Yes Medical Necessity: Significant Comorbidiites Make Outpatient Treatment Too Risky, Need Close Monitoring Due to Risk of Patient Decompensation, Need For Continuous Telemetry Monitoring, Risk of Complication if Not Cared For in Hospital
[2020-01-10] MEDS ORDERED: LORAZEPAM INJ 2 MG/1 ML VIAL IV PRN (20:52)
[2020-01-10] MEDS: HEPARIN SOD (PORCINE) 5,000 UNIT/ML 1 ML VIAL SUBCUT SCH (21:20)
[2020-01-10] MEDS: IBUPROFEN 800 MG TABLET PO PRN (21:31)
[2020-01-10] MEDS: CEFEPIME 1 GM/D5W RTU 1 GM/50 ML RTUPB IV SCH (21:32)
[2020-01-10] MEDS: MORPHINE SULFATE 10 MG/ML INJ IV PRN (21:32)
[2020-01-10] MEDS ORDERED: LORAZEPAM 0.5 MG TABLET PO SCH (22:00)
[2020-01-11] MEDS ORDERED: ACETAMINOPHEN 325 MG TABLET PO PRN (05:00)
[2020-01-11] MEDS ORDERED: FUROSEMIDE INJ/PF 20 MG/2 ML SDV IV PRN (05:00)
[2020-01-11] MEDS ORDERED: DIPHENHYDRAMINE HCL 25 MG CAPSULE PO PRN (05:00)
[2020-01-11] MEDS: HEPARIN SOD (PORCINE) 5,000 UNIT/ML 1 ML VIAL SUBCUT SCH ×3 (05:25→21:19)
[2020-01-11 06:56] LABS: MEAN CORPUSCULAR HEMOGLOBIN 26.1 pg (27.0-33.4); MEAN CORPUSCULAR HGB CONC 32.1 g/dL (32.0-36.0); MEAN CORPUSCULAR VOLUME 81 fl (80-97); PLATELET COUNT 238 10^3/uL (150-450); RED BLOOD COUNT 2.59 10^6/uL (4.35-5.55); RED CELL DISTRIBUTION WIDTH 17.3 % (11.5-14.0); WHITE BLOOD COUNT 8.9 10^3/uL (4.0-10.5)
[2020-01-11 06:58] LABS: HEMOGLOBIN 6.8 g/dL (13.5-17.0)
[2020-01-11 07:13] LABS: BLOOD UREA NITROGEN 12 mg/dL (7-20); CALCIUM 7.9 mg/dL (8.4-10.2); CHLORIDE 102 mmol/L (98-107); GLUCOSE 112 mg/dL (75-110); POTASSIUM 3.5 mmol/L (3.6-5.0)
[2020-01-11 07:19] LABS: CARBON DIOXIDE 36 mmol/L (22-30)
[2020-01-11 07:23] LABS: ANION GAP 3 (5-19)
--- NOTE | 2020-01-11 08:35 | RADIOLOGY REPORT (SQ) ---
EXAM DESCRIPTION: CHEST SINGLE VIEW COMPLETED DATE/TIME: 01/11/2020 7:46 am REASON FOR STUDY: pneumothorax COMPARISON: 01/10/2020 NUMBER OF VIEWS: One view. TECHNIQUE: Single frontal radiographic image of the chest acquired. LIMITATIONS: None. FINDINGS: LUNGS AND PLEURA: Stable appearance. Left-sided chest tube remains in place. MEDIASTINUM AND HILAR STRUCTURES: Stable heart size and mediastinal structures. HEART AND VASCULAR STRUCTURES: Stable appearance. BONES: No acute findings. HARDWARE: None in the chest. OTHER: No other significant finding. IMPRESSION: STABLE APPEARANCE OF THE CHEST. TECHNICAL DOCUMENTATION: JOB ID: [id number] 2010 [employer]- All Rights Reserved Reading location - IP/workstation name: [email or web address]
--- NOTE | 2020-01-11 08:41 | PDOC CONSULTATION ---
Consultation Consult Date: 01/11/20 Attending physician:: YASMIN SORTO Provider Consulted: PABLO WELCH Consult reason:: Stage IV pancreatic cancer History of Present Illness Admission Date/PCP: 01/10/20 15:04 PABLO WELCH MD Patient complains of: Weakness, pain shortness of breath History of Present Illness: LEEANN DONALD is a 39 year old male with known history of stage IV pancreatic cancer on second line therapy with Gemzar Abraxane, unfortunately has been getting weaker at home, losing weight, worsening lung status and left-sided chest pain, ultimately he came in because of these issues, was found to have a pneumothorax at the Pleurx catheter site. Surgery has been consulted, did not feel that any intervention would improve that situation. Today I had a long discussion about comfort care and hospice with patient. Patient and at bedside seem agreeable. I have had this conversation in the office and a smaller way, but previously other family members including sisters were not ready to pursue this approach, I discussed his case also with a family friend who has been helping family understand by the name of Grace lorenzana. I gave the phone number to [facility] of this family friend, and she will be a good help and spokesperson to help family understand as well. Discussed DNR and patient is agreeable to this Past Medical History Cardiac Medical History: Reports: Hypertension Endocrine Medical History: Reports: Diabetes Mellitus Type 2 Malignancy Medical History: Reports: Pancreatic Cancer - Stage IV Past Surgical History Past Surgical History: Reports: Other - umbilical area I/D. Biopsy pancreatic mass Social History Smoking Status: Never Smoker Electronic Cigarette use?: No Frequency of Alcohol Use: None Hx Recreational Drug Use: Yes Drugs: None Hx Prescription Drug Abuse: No Family History Family History: Reviewed & Not Pertinent Parental Family History Reviewed: Yes Children Family History Reviewed: Yes Sibling(s) Family History Reviewed.: Yes Medication/Allergy Home Medications: Clonidine HCl [Catapres 0.1 mg Tablet] 0.1 mg PO DAILY 11/25/19 Ondansetron HCl [Zofran 8 mg Tablet] 8 mg PO Q8HP PRN 11/25/19 Oxycodone HCl [Oxy-Ir 5 mg Tablet] 5 - 15 mg PO Q4HP PRN 11/25/19 Promethazine HCl [Phenergan 25 mg Tablet] 25 mg PO Q6HP PRN 11/25/19 Docusate Sodium [Colace 100 mg Capsule] 200 mg PO BID 01/10/20 Fentanyl [Duragesic 75 Mcg/Hr Transdermal Patch] 75 mcg TD Q72H 01/10/20 Ibuprofen [Motrin 800 mg Tablet] 800 mg PO Q8HP PRN 01/10/20 Allergies/Adverse Reactions: azithromycin Allergy (Unknown, Verified 01/10/20 12:32) Review of Systems Constitutional: ABSENT: chills, fever(s), headache(s), weight gain, weight loss Eyes: ABSENT: visual disturbances Ears: ABSENT: hearing changes Cardiovascular: ABSENT: chest pain, dyspnea on exertion, edema, orthropnea, palpitations Respiratory: ABSENT: cough, hemoptysis Gastrointestinal: ABSENT: abdominal pain, constipation, diarrhea, hematemesis, hematochezia, nausea, vomiting Genitourinary: ABSENT: dysuria, hematuria Musculoskeletal: ABSENT: joint swelling Integumentary: ABSENT: rash, wounds Neurological: ABSENT: abnormal gait, abnormal speech, confusion, dizziness, focal weakness, syncope Psychiatric: ABSENT: anxiety, depression, homidical ideation, suicidal ideation Endocrine: ABSENT: cold intolerance, heat intolerance, polydipsia, polyuria Hematologic/Lymphatic: ABSENT: easy bleeding, easy bruising Physical Exam Vital Signs: Temp Pulse Resp BP Pulse Ox 99.2 F 118 H 19 130/73 H 92 01/10/20 23:54 01/10/20 23:54 01/10/20 23:54 01/10/20 23:54 01/10/20 23:54 Intake & Output 01/10/20 01/11/20 01/12/20 06:59 06:59 06:59 Intake Total 150 Output Total 1050 Balance -900 Weight 76.8 kg General appearance: PRESENT: no acute distress, well-developed, well-nourished Head exam: PRESENT: atraumatic, normocephalic Eye exam: PRESENT: conjunctiva pink, EOMI, PERRLA. ABSENT: scleral icterus Ear exam: PRESENT: normal external ear exam Mouth exam: PRESENT: moist, tongue midline Neck exam: ABSENT: carotid bruit, JVD, lymphadenopathy, thyromegaly Respiratory exam: PRESENT: clear to auscultation duong. ABSENT: rales, rhonchi, wheezes Cardiovascular exam: PRESENT: RRR. ABSENT: diastolic murmur, rubs, systolic murmur Pulses: PRESENT: normal dorsalis pedis pul Vascular exam: PRESENT: normal capillary refill GI/Abdominal exam: PRESENT: normal bowel sounds, soft. ABSENT: distended, guarding, mass, organolmegaly, rebound, tenderness Rectal exam: PRESENT: deferred Extremities exam: PRESENT: full ROM. ABSENT: calf tenderness, clubbing, pedal edema Neurological exam: PRESENT: alert, awake, oriented to person, oriented to place, oriented to time, oriented to situation, CN II-XII grossly intact. ABSENT: motor sensory deficit Psychiatric exam: PRESENT: appropriate affect, normal mood. ABSENT: homicidal ideation, suicidal ideation Skin exam: PRESENT: dry, intact, warm. ABSENT: cyanosis, rash Results Laboratory Results: 01/11/20 05:30 01/11/20 05:30 01/10/20 01/10/20 01/10/20 13:09 13:09 13:09 WBC 10.9 H RBC 3.03 L Hgb 8.1 L Hct 24.2 L MCV 80 MCH 26.8 L MCHC 33.5 RDW 17.1 H Plt Count 263 Seg Neutrophils % 80.4 H Sodium 141.6 Potassium 3.4 L Chloride 103 Carbon Dioxide 34 H Anion Gap 5 BUN 9 Creatinine 0.43 L Est GFR ( Amer) > 60 Glucose 115 H Calcium 8.4 Magnesium 1.9 Total Bilirubin 0.6 AST 24 Alkaline Phosphatase 136 H Total Protein 6.7 Albumin 2.9 L Urine Color Urine Appearance Urine pH Ur Specific [place] Urine Protein Urine Glucose (UA) Urine Ketones Urine Blood 01/10/20 01/11/20 01/11/20 15:38 05:30 05:30 WBC 8.9 RBC 2.59 L Hgb 6.8 L Hct 21.0 L MCV 81 MCH 26.1 L MCHC 32.1 RDW 17.3 H Plt Count 238 Seg Neutrophils % Sodium 140.7 Potassium 3.5 L Chloride 102 Carbon Dioxide 36 H Anion Gap 3 L BUN 12 Creatinine 0.65 Est GFR ( Amer) > 60 Glucose 112 H Calcium 7.9 L Magnesium Total Bilirubin AST Alkaline Phosphatase Total Protein Albumin Urine Color YELLOW Urine Appearance CLEAR Urine pH 5.0 Ur Specific [place] 1.011 Urine Protein NEGATIVE Urine Glucose (UA) NEGATIVE Urine Ketones NEGATIVE Urine Blood NEGATIVE Impressions: Chest X-Ray 01/11/20 06:00 IMPRESSION: STABLE APPEARANCE OF THE CHEST. Status: Image reviewed by me Assessment & Plan - Diagnosis (1) Pancreatic cancer metastasized to liver Is this a current diagnosis for this admission?: Yes Plan: Discussed with patient and family, discontinue chemotherapy and initiate comfort care, placed consult for discharge planning to discuss hospice with family (2) Pain, neoplasm-related Is this a current diagnosis for this admission?: Yes Plan: Increase fentanyl patch, placed other orders yesterday for pain control (3) Malignant pleural effusion Is this a current diagnosis for this admission?: Yes Plan: Continue with fluid removal as tolerated, probably the catheter is more in edematous pocket as opposed to a pleural fluid pocket. But removal does give him comfort. - Time Time Spent: Greater than 70 Minutes
[2020-01-11] MEDS ORDERED: FENTANYL 100 MCG/HR PATCH.TD72 TD SCH (09:00)
[2020-01-11] MEDS: CLONIDINE HCL 0.1 MG TABLET PO SCH (09:27)
[2020-01-11] MEDS: CEFEPIME 1 GM/D5W RTU 1 GM/50 ML RTUPB IV SCH ×2 (09:27→21:23)
[2020-01-11] MEDS: DOCUSATE SODIUM 100 MG CAPSULE PO SCH ×2 (09:27→17:46)
--- NOTE | 2020-01-11 18:51 | PDOC PROGRESS REPORT ---
Subjective Progress Note for:: 01/11/20 Subjective:: No adverse events overnight. We were unable to get the appropriate equipment to use his Pleurx drain on wall suction, but it looks like he was evaluated by surgery and they do not think that suction is going to help reduce the size of his pneumothorax. He was seen today by Dr. Florez who has encouraged hospice. Reason For Visit: MALIGNANT PLEURAL EFFUSION,PNEUMOTHORAX Physical Exam Vital Signs: Temp Pulse Resp BP Pulse Ox 98.5 F 108 H 15 123/74 94 01/11/20 15:43 01/11/20 15:43 01/11/20 15:43 01/11/20 15:43 01/11/20 15:43 Intake & Output 01/10/20 01/11/20 01/12/20 06:59 06:59 06:59 Intake Total 150 500 Output Total 1050 Balance -900 500 Weight 76.8 kg General appearance: PRESENT: no acute distress, cooperative, disheveled Respiratory exam: PRESENT: decreased breath sounds - Left base, symmetrical, unlabored, other - Pleurx drain left lateral chest, no subcutaneous emphysema. ABSENT: accessory muscle use, chest wall tenderness, prolonged expiratory phas, retraction, rhonchi, tachypnea, wheezes Cardiovascular exam: PRESENT: RRR, +S1, +S2 Pulses: PRESENT: normal carotid pulses Vascular exam: PRESENT: normal capillary refill GI/Abdominal exam: PRESENT: normal bowel sounds, soft. ABSENT: distended, guarding, rebound, tenderness Extremities exam: ABSENT: clubbing, pedal edema Musculoskeletal exam: PRESENT: normal inspection. ABSENT: deformity Neurological exam: PRESENT: alert, awake, oriented to person, oriented to place, oriented to situation, CN II-XII grossly intact. ABSENT: motor sensory deficit Psychiatric exam: PRESENT: flat affect Skin exam: PRESENT: dry, warm Results Laboratory Results: 01/11/20 05:30 01/11/20 05:30 01/10/20 01/11/20 01/11/20 13:09 05:30 05:30 WBC 8.9 RBC 2.59 L Hgb 6.8 L Hct 21.0 L MCV 81 MCH 26.1 L MCHC 32.1 RDW 17.3 H Plt Count 238 Sodium 141.6 140.7 Potassium 3.4 L 3.5 L Chloride 103 102 Carbon Dioxide 34 H 36 H Anion Gap 5 3 L BUN 9 12 Creatinine 0.43 L 0.65 Est GFR ( Amer) > 60 > 60 Glucose 115 H 112 H Calcium 8.4 7.9 L Total Bilirubin 0.6 AST 24 Alkaline Phosphatase 136 H Total Protein 6.7 Albumin 2.9 L Blood Type Antibody Screen 01/11/20 10:09 WBC RBC Hgb Hct MCV MCH MCHC RDW Plt Count Sodium Potassium Chloride Carbon Dioxide Anion Gap BUN Creatinine Est GFR ( Amer) Glucose Calcium Total Bilirubin AST Alkaline Phosphatase Total Protein Albumin Blood Type O POSITIVE Antibody Screen NEGATIVE Impressions: Chest X-Ray 01/11/20 06:00 IMPRESSION: STABLE APPEARANCE OF THE CHEST. Assessment and Plan - Diagnosis (1) Malignant pleural effusion Is this a current diagnosis for this admission?: Yes Plan: He gets it drained intermittently via suction container via the Pleurx drain. (2) Pneumothorax Qualifiers: Pneumothorax type: other pneumothorax Qualified Code(s): J93.83 - Other pneumothorax Is this a current diagnosis for this admission?: Yes Plan: Surgery recommends not doing wall suction because it is not likely to help the lung reexpand (3) Pancreatic cancer metastasized to liver Is this a current diagnosis for this admission?: Yes Plan: Dr. Florez has encouraged hospice. Patient seems to have decided as the way he is going to go, but has not officially told case management that he wants to talk to someone from hospice. - Time Time Spent with patient: 15-24 minutes
[2020-01-11] MEDS: MORPHINE SULFATE 10 MG/ML INJ IV PRN (21:26)
[2020-01-11] MEDS: IBUPROFEN 800 MG TABLET PO PRN (21:27)
[2020-01-12] MEDS: HEPARIN SOD (PORCINE) 5,000 UNIT/ML 1 ML VIAL SUBCUT SCH (05:29)
[2020-01-12 05:43] LABS: HEMATOCRIT 23.3 % (37.9-51.0); MEAN CORPUSCULAR HEMOGLOBIN 27.4 pg (27.0-33.4); MEAN CORPUSCULAR HGB CONC 33.1 g/dL (32.0-36.0); MEAN CORPUSCULAR VOLUME 83 fl (80-97); PLATELET COUNT 255 10^3/uL (150-450); RED BLOOD COUNT 2.81 10^6/uL (4.35-5.55); WHITE BLOOD COUNT 9.6 10^3/uL (4.0-10.5)
[2020-01-12 05:48] LABS: HEMOGLOBIN 7.7 g/dL (13.5-17.0)
[2020-01-12 05:59] LABS: ANION GAP 7 (5-19); BLOOD UREA NITROGEN 16 mg/dL (7-20); CALCIUM 7.9 mg/dL (8.4-10.2); CARBON DIOXIDE 34 mmol/L (22-30); CHLORIDE 102 mmol/L (98-107); GLUCOSE 108 mg/dL (75-110); POTASSIUM 3.4 mmol/L (3.6-5.0)
--- NOTE | 2020-01-12 07:58 | PDOC PROGRESS REPORT ---
Subjective Progress Note for:: 01/12/20 Subjective:: Discussed with patient this morning. Strongly recommended hospice. Patient and family agree that hospice will be initiated. But, patient seems ready to go home today and we could initiate hospice as an outpatient, they have contact information for them. Reason For Visit: MALIGNANT PLEURAL EFFUSION,PNEUMOTHORAX Physical Exam Vital Signs: Temp Pulse Resp BP Pulse Ox 98.8 F 115 H 16 119/73 94 01/11/20 23:53 01/11/20 23:53 01/11/20 23:53 01/11/20 23:53 01/11/20 23:53 Intake & Output 01/11/20 01/12/20 01/13/20 06:59 06:59 06:59 Intake Total 150 910 Output Total 1050 Balance -900 910 Weight 76.8 kg 76.5 kg General appearance: PRESENT: no acute distress, well-developed, well-nourished Head exam: PRESENT: atraumatic, normocephalic Eye exam: PRESENT: conjunctiva pink, EOMI, PERRLA. ABSENT: scleral icterus Ear exam: PRESENT: normal external ear exam Mouth exam: PRESENT: moist, tongue midline Neck exam: ABSENT: carotid bruit, JVD, lymphadenopathy, thyromegaly Respiratory exam: PRESENT: clear to auscultation duong. ABSENT: rales, rhonchi, wheezes Cardiovascular exam: PRESENT: RRR. ABSENT: diastolic murmur, rubs, systolic murmur Pulses: PRESENT: normal dorsalis pedis pul Vascular exam: PRESENT: normal capillary refill GI/Abdominal exam: PRESENT: normal bowel sounds, soft. ABSENT: distended, guarding, mass, organolmegaly, rebound, tenderness Rectal exam: PRESENT: deferred Extremities exam: PRESENT: full ROM. ABSENT: calf tenderness, clubbing, pedal edema Neurological exam: PRESENT: alert, awake, oriented to person, oriented to place, oriented to time, oriented to situation, CN II-XII grossly intact. ABSENT: motor sensory deficit Psychiatric exam: PRESENT: appropriate affect, normal mood. ABSENT: homicidal ideation, suicidal ideation Skin exam: PRESENT: dry, intact, warm. ABSENT: cyanosis, rash Results Laboratory Results: 01/12/20 05:20 01/12/20 05:20 01/11/20 01/12/20 01/12/20 10:09 05:20 05:20 WBC 9.6 RBC 2.81 L Hgb 7.7 L Hct 23.3 L MCV 83 MCH 27.4 MCHC 33.1 RDW 17.0 H Plt Count 255 Sodium 142.9 Potassium 3.4 L Chloride 102 Carbon Dioxide 34 H Anion Gap 7 BUN 16 Creatinine 0.77 Est GFR ( Amer) > 60 Glucose 108 Calcium 7.9 L Blood Type O POSITIVE Antibody Screen NEGATIVE Impressions: Chest X-Ray 01/11/20 06:00 IMPRESSION: STABLE APPEARANCE OF THE CHEST. Assessment & Plan - Diagnosis (1) Pancreatic cancer metastasized to liver Is this a current diagnosis for this admission?: Yes Plan: Stop all chemotherapy, initiate hospice at home (2) Pain, neoplasm-related Is this a current diagnosis for this admission?: Yes Plan: Will ask hospitalist team to give Rx for fentanyl to patient, now 100 mcg patch, continue with oral oxycodone as needed. (3) Malignant pleural effusion Is this a current diagnosis for this admission?: Yes Plan: Continue drainage every 2 days as needed - Time Time Spent with patient: 35 or more minutes
--- NOTE | 2020-01-12 09:24 | RADIOLOGY REPORT (SQ) ---
EXAM DESCRIPTION: CHEST SINGLE VIEW COMPLETED DATE/TIME: 01/12/2020 8:21 am REASON FOR STUDY: pneumothorax COMPARISON: Previous day. NUMBER OF VIEWS: One view. TECHNIQUE: Single frontal radiographic image of the chest acquired. LIMITATIONS: None. FINDINGS: LUNGS AND PLEURA: Near complete opacification of the left lung not significantly changed. Right lung is clear. MEDIASTINUM AND HEART: Stable heart size and mediastinal structures. SUPPORT DEVICES: Appropriate location without change. BONY STRUCTURES: No acute findings. HARDWARE: None. OTHER: No other significant finding. IMPRESSION: STABLE APPEARANCE OF THE CHEST. SUPPORT DEVICES UNCHANGED. Reading location - IP/workstation name: [email or web address]
[2020-01-12] MEDS: CLONIDINE HCL 0.1 MG TABLET PO SCH (09:33)
[2020-01-12] MEDS: DOCUSATE SODIUM 100 MG CAPSULE PO SCH (09:34)
[2020-01-12] MEDS: CEFEPIME 1 GM/D5W RTU 1 GM/50 ML RTUPB IV SCH (09:34)
--- NOTE | 2020-01-12 16:46 | PDOC DISCHARGE SUMMARY ---
Impression - Admit/DC Date/PCP Admission Date/Primary Care Provider: 01/10/20 15:04 PABLO WELCH MD Discharge Date: 01/12/20 - Discharge Diagnosis (1) Malignant pleural effusion Is this a current diagnosis for this admission?: Yes (2) Pneumothorax Is this a current diagnosis for this admission?: Yes (3) Pancreatic cancer metastasized to liver Is this a current diagnosis for this admission?: Yes - Additional Information Resuscitation Status: Do Not Resuscitate Discharge Diet: As Tolerated Discharge Activity: Balance Activity w/Rest, Supervised Activity Referrals: HOSPICE,CARE [Other] (TO BE INITIATED OUTPATIENT IF NEEDED.) Prescriptions: Fentanyl [Duragesic 100 Mcg/Hr Transdermal Patch] 1 each TD Q3D@0900 #10 patch.[id number] Home Medications: Clonidine HCl [Catapres 0.1 mg Tablet] 0.1 mg PO DAILY 11/25/19 Ondansetron HCl [Zofran 8 mg Tablet] 8 mg PO Q8HP PRN 11/25/19 Oxycodone HCl [Oxy-Ir 5 mg Tablet] 5 - 15 mg PO Q4HP PRN 11/25/19 Promethazine HCl [Phenergan 25 mg Tablet] 25 mg PO Q6HP PRN 11/25/19 Docusate Sodium [Colace 100 mg Capsule] 200 mg PO BID 01/10/20 Ibuprofen [Motrin 800 mg Tablet] 800 mg PO Q8HP PRN 01/10/20 Fentanyl [Duragesic 100 Mcg/Hr Transdermal Patch] 1 each TD Q3D@0900 #10 patch.[id number] 01/12/20 History of Present Illiness History of Present Illness: LEEANN DONALD is a 39 year old male with a history of stage IV pancreatic cancer who has a recurrent pleural effusion on the left and has a Pleurx drain in place that he drains every couple of days. He said he was short of breath today and had a regular scheduled follow-up with Dr. Welch and was sent over here from the office. He was found to have substantial recurrence of the pleural effusion and also an apical pneumothorax. He was admitted for further management. Hospital Course Hospital Course: It was ultimately decided that suction would not help improve his pneumothorax. We did drain some extra fluid off with his usual suction container procedure that he does at home. His breathing does not feel too bad. Dr. Welch had a long conversation with him and his family he is ultimately decided to go home on hospice. I have given him a prescription for the new dose of the fentanyl patch to Dr. Welch recommended. He has a lot of family support at home. His labs and examination were reassuring and he was discharged in stable condition. Physical Exam Vital Signs: Temp Pulse Resp BP Pulse Ox 99.1 F 126 H 15 122/78 98 01/12/20 11:41 01/12/20 11:41 01/12/20 11:41 01/12/20 11:41 01/12/20 11:41 Intake & Output 01/11/20 01/12/20 01/13/20 06:59 06:59 06:59 Intake Total 150 910 Output Total 1050 Balance -900 910 Weight 76.8 kg 76.5 kg General appearance: PRESENT: no acute distress, cooperative, disheveled Respiratory exam: PRESENT: decreased breath sounds - Left base, symmetrical, unlabored, other - Pleurx drain left lateral chest, no subcutaneous emphysema. ABSENT: accessory muscle use, chest wall tenderness, prolonged expiratory phas, retraction, rhonchi, tachypnea, wheezes Cardiovascular exam: PRESENT: RRR, +S1, +S2 Pulses: PRESENT: normal carotid pulses Vascular exam: PRESENT: normal capillary refill GI/Abdominal exam: PRESENT: normal bowel sounds, soft. ABSENT: distended, gu arding, rebound, tenderness Extremities exam: ABSENT: clubbing, pedal edema Musculoskeletal exam: PRESENT: normal inspection. ABSENT: deformity Neurological exam: PRESENT: alert, awake, oriented to person, oriented to place, oriented to situation, CN II-XII grossly intact. ABSENT: motor sensory deficit Psychiatric exam: PRESENT: flat affect Skin exam: PRESENT: dry, warm Results Laboratory Results: WBC 9.6 10^3/uL (4.0-10.5) 01/12/20 05:20 RBC 2.81 10^6/uL (4.35-5.55) L 01/12/20 05:20 Hgb 7.7 g/dL (13.5-17.0) L 01/12/20 05:20 Hct 23.3 % (37.9-51.0) L 01/12/20 05:20 MCV 83 fl (80-97) 01/12/20 05:20 MCH 27.4 pg (27.0-33.4) 01/12/20 05:20 MCHC 33.1 g/dL (32.0-36.0) 01/12/20 05:20 RDW 17.0 % (11.5-14.0) H 01/12/20 05:20 Plt Count 255 10^3/uL (150-450) 01/12/20 05:20 Lymph % (Auto) 10.5 % (13-45) L 01/10/20 13:09 [place] % (Auto) 8.0 % (3-13) 01/10/20 13:09 Eos % (Auto) 0.5 % (0-6) 01/10/20 13:09 Baso % (Auto) 0.6 % (0-2) 01/10/20 13:09 Absolute Neuts (auto) 8.7 10^3/uL (1.7-8.2) H 01/10/20 13:09 Absolute Lymphs (auto) 1.1 10^3/uL (0.5-4.7) 01/10/20 13:09 Absolute Monos (auto) 0.9 10^3/uL (0.1-1.4) 01/10/20 13:09 Absolute Eos (auto) 0.1 10^3/uL (0.0-0.6) 01/10/20 13:09 Absolute Basos (auto) 0.1 10^3/uL (0.0-0.2) 01/10/20 13:09 Seg Neutrophils % 80.4 % (42-78) H 01/10/20 13:09 Sodium 142.9 mmol/L (137-145) 01/12/20 05:20 Potassium 3.4 mmol/L (3.6-5.0) L 01/12/20 05:20 Chloride 102 mmol/L (98-107) 01/12/20 05:20 Carbon Dioxide 34 mmol/L (22-30) H 01/12/20 05:20 Anion Gap 7 (5-19) 01/12/20 05:20 BUN 16 mg/dL (7-20) 01/12/20 05:20 Creatinine 0.77 mg/dL (0.52-1.25) 01/12/20 05:20 Est GFR ( Amer) > 60 (>60) 01/12/20 05:20 Est GFR (MDRD) Non-Af > 60 (>60) 01/12/20 05:20 Glucose 108 mg/dL (75-110) 01/12/20 05:20 Calcium 7.9 mg/dL (8.4-10.2) L 01/12/20 05:20 Magnesium 1.9 mg/dL (1.6-2.3) 01/10/20 13:09 Total Bilirubin 0.6 mg/dL (0.2-1.3) 01/10/20 13:09 Direct Bilirubin 0.0 mg/dL (0.0-0.4) 01/10/20 13:09 Neonat Total Bilirubin Not Reportable 01/10/20 13:09 Neonat Direct Bilirubin Not Reportable 01/10/20 13:09 Neonat Indirect Bili Not Reportable 01/10/20 13:09 AST 24 U/L (17-59) 01/10/20 13:09 ALT 6 U/L (<50) 01/10/20 13:09 Alkaline Phosphatase 136 U/L (38-126) H 01/10/20 13:09 Total Protein 6.7 g/dL (6.3-8.2) 01/10/20 13:09 Albumin 2.9 g/dL (3.5-5.0) L 01/10/20 13:09 Urine Color YELLOW 01/10/20 15:38 Urine Appearance CLEAR 01/10/20 15:38 Urine pH 5.0 (5.0-9.0) 01/10/20 15:38 Ur Specific [place] 1.011 01/10/20 15:38 Urine Protein NEGATIVE mg/dL (NEGATIVE) 01/10/20 15:38 Urine Glucose (UA) NEGATIVE mg/dL (NEGATIVE) 01/10/20 15:38 Urine Ketones NEGATIVE mg/dL (NEGATIVE) 01/10/20 15:38 Urine Blood NEGATIVE (NEGATIVE) 01/10/20 15:38 Urine Nitrite (Reflex) NEGATIVE (NEGATIVE) 01/10/20 15:38 Urine Bilirubin NEGATIVE (NEGATIVE) 01/10/20 15:38 Urine Urobilinogen 2.0 mg/dL (<2.0) H 01/10/20 15:38 Leukocyte Esterase Rfl NEGATIVE (NEGATIVE) 01/10/20 15:38 Urine Mucus TRACE 01/10/20 15:38 Urine Ascorbic Acid NEGATIVE (NEGATIVE) 01/10/20 15:38 Blood Type O POSITIVE 01/11/20 10:09 Antibody Screen NEGATIVE 01/11/20 10:09 Crossmatch See Detail 01/11/20 10:09 Impressions: Chest X-Ray 01/10/20 12:34 IMPRESSION: 1. Left apical- left upper lung pneumothorax appears larger than on the prior examination dated 12/02/2019. Increasing left pleural effusion and consolidation/airspace disease in the left hemithorax. Correlation suggested. Chest X-Ray 01/11/20 06:00 IMPRESSION: STABLE APPEARANCE OF THE CHEST. Chest X-Ray 01/12/20 06:00 IMPRESSION: STABLE APPEARANCE OF THE CHEST. SUPPORT DEVICES UNCHANGED. Plan Time Spent: Greater than 30 Minutes Stroke Is this a Stroke Patient?: No Acute Heart Failure - Is this a Heart Failure Patient?: No
[2020-01-12 16:51] VITALS: BP 126/82
[2020-01-13] MEDS ORDERED: FENTANYL 75 MCG/HR PATCH.TD72 TD SCH (10:00)
== END 2020-01-12 18:14 | disposition hospice, home (50) | DRG 436 ==
LOC: ER 12:25 → EH 15:04 → 5 16:47
PROVIDERS: ADMIT Family Medicine; ATTEND Family Medicine
DX: C25.9 Malignant neoplasm of pancreas, unspecified (principal); C78.7 Secondary malignant neoplasm of liver and intrahepatic bile duct; J91.0 Malignant pleural effusion; J93.83 Other pneumothorax; G89.3 Neoplasm related pain (acute) (chronic); Z66 Do not resuscitate; I10 Essential (primary) hypertension; E11.9 Type 2 diabetes mellitus without complications; Z79.899 Other long term (current) drug therapy; Z88.1 Allergy status to other antibiotic agents; Z97.8 Presence of other specified devices
CPT/HCPCS: 36415; 36430; 36591; 71045; 71046; 80048; 80053; 81001; 83735; 85025; 85027; 86850; 86900; 86901; 86920; 87040; 93005; 93010; 96374; 99285; J0692; J1940; J2270; J3490; P9016